=== PATIENT | female | born 2000 | race Hispanic/Latino ===

== ENCOUNTER 2022-07-29 14:48 | Emergency (ER) | payer OTHER ==
--- OUTSIDE RECORDS SUMMARY | 2022-07-29 14:55 | XMS REPORT | Continuity of Care Document ---
:2000 Author Organization [facility] t Address [address] [place] [address] [place] [address] Care Team Providers Name Role Phone PCP, PATIENT DOES NOT HAVE A Primary Care Physician Unavaila Florencia Clifton Attending Clinician Unavailable Luis E Gutiérrez MD Attending Clinician Unknown, Attending Attending Clinician Unavailable LUIS E GUTIÉRREZ Attending Clinician Unavailable Minal Haley Attending Clinician Provider, [facility] Attending Clinician Unavailable Doctor Unassigned, [place] Attending Clinician Unavailable Yoly Olsen Attending Clinician Negrita Escobar Attending Clinician Negrita KEENE Attending Clinician Unavailable Michelle Esparza MD Attending Clinician SHAMAR SULTANA Attending Clinician Unavailable Tiffany Miller Attending Clinician Pcp, Patient Does Not Have A Attending Clinician [phone] Florencia Gottlieb Admitting Clinician Unavailable Negrita KEENE Admitting Clinician Unavailable SHAMAR SULTANA Admitting Clinician Unavailable Payers Payer Name Policy Type Policy Number Effective Date Expiration Date Babak lópez [facility] [id number] 2015 00:00:00 Problems Condition Condition Condition Status Onset Resolution Last Treating Co mments Source Name Details Category Date Date Treatment Clinician Date Flexural Flexural Disease Active Unive rs eczema eczema 9-30 ity of 00:00: [place] 00 Medical Branch Anxiety Anxiety Disease Active Univers 9-30 ity of 00:00: [place] 00 Medical Branch Positive Positive Disease Active Unive rs LESVIA LESVIA 2-20 ity of (antinucle [place]antinucle [place] 00 Medical antibody) antibody) Bran ch H. pylori H. pylori Disease Active Overview: Univers infection infection 1-18 Added ity of 00:00: automatic [place] 00 ally from Medical request Branch for surgery [id number] Gastritis Gastritis Disease Active Overview: Univers without without 1-18 Added ity of bleeding, bleeding, 00:00: automatic [place] unspecifie unspecifie 00 ally from Medical d d request Branch chronicity chronicity for , , surgery unspecifie unspecifie [id number] d d gastritis gastritis type type Gastritis, Gastritis, Disease Active U nivers presence presence 1-08 ity of of of 00:00: [place] bleeding bleeding 00 Medica l unspecifie unspecifie Br anch d, d, unspecifie unspecifie d d chronicity chronicity , , unspecifie unspecifie d d gastritis gastritis type type 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 00:00: [place] 00 Medical Branch Epigastric Epigastric Disease Active U nivers abdominal abdominal 7-29 ity of pain pain 00:00: [place] 00 [facility] Branch Migraines Migraines Disease Active Uni vers it[facility] of [place] [facility] Allergies, Adverse Reactions, Alerts Allergy Allergy Status Severity Reaction(s) Onset Inactive Treating Comm ents Source Name Type Date Date Clinician No Known DA Active U [facility] [place] No Known DA Active U [facility] Allergie 8-31 [facility] 00:[facility] [place] NO KNOWN Drug Active Univers ALLERGIE Class ity of S [facility] Social History Social Habit Start Date Stop Date Quantity Comments Source ASSERTION 2020-07-13 University 00:00:00 [facility] Exposure to 2022-05-16 2022-05-26 Not sure [facility]-CoV-2 00:00:00 15:27:00 [facility] (event) [place] Tobacco use and 2022-05-26 2022-05-26 Smokeless tobacco Un iversity of exposure 00:00:00 00:00:00 non-user [facility] Alcohol intake 2022-05-26 2022-05-26 Ex-drinker [facility] 00:00:00 00:00:00 (finding) [facility] Alcohol Comment 2017-02-01 2017-02-01 Socially Universit y of 00:00:00 00:00:00 [facility] Sex Assigned At [birth year] Universit y of 00:00:00 00:00:00 [facility] Smoking Status Start Date Stop Date Source Never smoked tobacco [facility] Medications Ordered Filled Start Stop Current Ordering Indication Dosage Frequency Signature Comments Components Source Medication Medication Date Date Medication? Clinician (SIG) Name Name neomycin-po 2021-07 Yes [id number] 4[drp] Place 4 Univers lymyxin-hyd 1-20 Drops in ity of rocortisone 00:00: right ear [place] otic 00 4 (four) Medical solution times [place] daily. loratadine 2020- No [id number] 10mg Take 1 Univers (CLARITIN) 6-14 07-15 tablet by ity of 10 mg 00:00: 04:59 mouth [place] tablet 00 :00 daily for Medical 30 days. Branch loratadine 2020- No [id number] 10mg Take 1 Univers (CLARITIN) 6-14 07-15 tablet by ity of 10 mg 00:00: 04:59 mouth [place] tablet 00 :00 daily for Medical 30 days. Branch acetaminoph 2020- No 1000mg 1,000 mg, Univers en 09 05-09 Oral, ity of (TYLENOL) 04:15: 03:21 ONCE, [place] :[place] dose, Sat Medical 1,000 mg 11/11/20 at Branch 2315, Routine cyclobenzap 2020-0 Yes [id number] 10mg Take 1 Univers rine 10 mg 6-08 tablet by ity of tablet 00:00: mouth 3 (three) Medical times Branch daily. ibuprofen 2020-0 Yes [id number] 600mg Take 1 Univers 600 mg 6-08 tablet by ity of tablet 00:00: mouth [place] 00 every 6 Medical (six) Branch hours as needed for Pain (scale 4-6). cyclobenzap 2020-0 Yes [id number] 10mg Take 1 Univers rine 10 mg 6-08 tablet by ity of tablet 00:00: mouth 3 00 (three) Medical times Branch daily. ibuprofen 2020-0 Yes [id number] 600mg Take 1 Univers 600 mg 6-08 tablet by ity of tablet 00:00: mouth [place] 00 every 6 Medical (six) Branch hours as needed for Pain (scale 4-6). cyclobenzap 2020-0 Yes [id number] 10mg Take 1 Univers rine 10 mg 6-08 tablet by ity of tablet 00:00: mouth (three) Medical times Branch daily. ibuprofen 2020-0 Yes [id number] 600mg Take 1 Univers 600 mg 6-08 tablet by ity of tablet 00:00: mouth [place] 00 every 6 Medical (six) Branch hours as needed for Pain (scale 4-6). cyclobenzap 2020-0 Yes [id number] 10mg Take 1 Univers rine 10 mg 6-08 tablet by ity of tablet 00:00: mouth (three) Medical times Branch daily. ibuprofen 2020-0 Yes [id number] 600mg Take 1 Univers 600 mg 6-08 tablet by ity of tablet 00:00: mouth [place] 00 every 6 Medical (six) Branch hours as needed for Pain (scale 4-6). cyclobenzap 2020-0 Yes [id number] 10mg Take 1 Univers rine 10 mg 6-08 tablet by ity of tablet 00:00: mouth 3 (three) Medical times Branch daily. ibuprofen 2020-0 Yes [id number] 600mg Take 1 Univers 600 mg 6-08 tablet by ity of tablet 00:00: mouth [place] 00 every 6 Medical (six) Branch hours as needed for Pain (scale 4-6). cyclobenzap 2020-0 Yes [id number] 10mg Take 1 Univers rine 10 mg 6-08 tablet by ity of tablet 00:00: mouth 3 [place] 00 (three) Medical times Branch daily. ibuprofen 2020-0 Yes [id number] 600mg Take 1 Univers 600 mg 6-08 tablet by ity of tablet 00:00: mouth [place] 00 every 6 Medical (six) Branch hours as needed for Pain (scale 4-6). cyclobenzap 2020-0 Yes [id number] 10mg Take 1 Univers rine 10 mg 6-08 tablet by ity of tablet 00:00: mouth 3 [place] 00 (three) Medical times Branch daily. ibuprofen 2020-0 Yes [id number] 600mg Take 1 Univers 600 mg 6-08 tablet by ity of tablet 00:00: mouth [place] 00 every 6 Medical (six) Branch hours as needed for Pain (scale 4-6). ibuprofen 2020-0 2020- No [id number] 600mg Take 1 Univers 600 mg 6-08 06-08 tablet by ity of tablet 00:00: 00:00 mouth [place] 00 :00 every 6 Medical (six) Branch hours as needed for Pain (scale 4-6). ibuprofen 2020-0 2020- No [id number] 600mg Take 1 Univers 600 mg 6-08 06-08 tablet by ity of tablet 00:00: 00:00 mouth [place] 00 :00 every 6 Medical (six) Branch hours as needed for Pain (scale 4-6). traMADol 2018-07 Yes [id number] 50mg Take 1 Uni vers (ULTRAM) 50 0-22 tablet by ity of mg tablet 00:00: mouth [place] 00 every 6 Medical (six) Branch hours as needed for Pain (scale 7-10). traMADol 2018-07 Yes [id number] 50mg Take 1 Uni vers (ULTRAM) 50 0-22 tablet by ity of mg tablet 00:00: mouth [place] 00 every 6 Medical (six) Branch hours as needed for Pain (scale 7-10). traMADol 2018-07 Yes [id number] 50mg Take 1 Uni vers (ULTRAM) 50 0-22 tablet by ity of mg tablet 00:00: mouth [place] 00 every 6 Medical (six) Branch hours as needed for Pain (scale 7-10). traMADol 2018-07 Yes [id number] 50mg Take 1 Uni vers (ULTRAM) 50 0-22 tablet by ity of mg tablet 00:00: mouth [place] 00 every 6 Medical (six) Branch hours as needed for Pain (scale 7-10). traMADol 2018-07 Yes [id number] 50mg Take 1 Uni vers (ULTRAM) 50 0-22 tablet by ity of mg tablet 00:00: mouth [place] 00 every 6 Medical (six) Branch hours as needed for Pain (scale 7-10). traMADol 2018-07 Yes [id number] 50mg Take 1 Uni vers (ULTRAM) 50 0-22 tablet by ity of mg tablet 00:00: mouth [place] 00 every 6 Medical (six) Branch hours as needed for Pain (scale 7-10). traMADol 2018-07 Yes [id number] 50mg Take 1 Uni vers (ULTRAM) 50 0-22 tablet by ity of mg tablet 00:00: mouth [place] 00 every 6 Medical (six) Branch hours as needed for Pain (scale 7-10). traMADol 2018-07 Yes [id number] 50mg Take 1 Uni vers (ULTRAM) 50 0-22 tablet by ity of mg tablet 00:00: mouth [place] 00 every 6 Medical (six) Branch hours as needed for Pain (scale 7-10). ondansetron 2018-07 Yes [id number] 4mg Take 1 Univers (ZOFRAN 0-08 tablet by ity of ODT) 4 mg 00:00: mouth [place] disintegrat 00 every 8 Medic al ing tablet (eight) Branch hours as needed for Nausea and Vomiting (N/V). ibuprofen 2018-07 Yes [id number] 600mg Take 1 U nivers 600 mg 0-08 tablet by ity of tablet 00:00: mouth [place] 00 every 8 Medical (eight) Branch hours as needed for Pain (scale 4-6). ondansetron 2018-07 Yes [id number] 4mg Take 1 Univers (ZOFRAN 0-08 tablet by ity of ODT) 4 mg 00:00: mouth [place] disintegrat 00 every 8 Medic al ing tablet (eight) Branch hours as needed for Nausea and Vomiting (N/V). ibuprofen 2018-07 Yes [id number] 600mg Take 1 U nivers 600 mg 0-08 tablet by ity of tablet 00:00: mouth [place] 00 every 8 Medical (eight) Branch hours as needed for Pain (scale 4-6). ondansetron 2018-07 Yes [id number] 4mg Take 1 Univers (ZOFRAN 0-08 tablet by ity of ODT) 4 mg 00:00: mouth [place] disintegrat 00 every 8 Medic al ing tablet (eight) Branch hours as needed for Nausea and Vomiting (N/V). ibuprofen 2018-07 Yes [id number] 600mg Take 1 U nivers 600 mg 0-08 tablet by ity of tablet 00:00: mouth [place] 00 every 8 Medical (eight) Branch hours as needed for Pain (scale 4-6). ondansetron 2018-07 Yes [id number] 4mg Take 1 Univers (ZOFRAN 0-08 tablet by ity of ODT) 4 mg 00:00: mouth [place] disintegrat 00 every 8 Medic al ing tablet (eight) Branch hours as needed for Nausea and Vomiting (N/V). ibuprofen 2018-07 Yes [id number] 600mg Take 1 U nivers 600 mg 0-08 tablet by ity of tablet 00:00: mouth [place] 00 every 8 Medical (eight) Branch hours as needed for Pain (scale 4-6). ondansetron 2018-07 Yes [id number] 4mg Take 1 Univers (ZOFRAN 0-08 tablet by ity of ODT) 4 mg 00:00: mouth [place] disintegrat 00 every 8 Medic al ing tablet (eight) Branch hours as needed for Nausea and Vomiting (N/V). ibuprofen 2018-07 Yes [id number] 600mg Take 1 U nivers 600 mg 0-08 tablet by ity of tablet 00:00: mouth [place] 00 every 8 Medical (eight) Branch hours as needed for Pain (scale 4-6). ondansetron 2018-07 Yes [id number] 4mg Take 1 Univers (ZOFRAN 0-08 tablet by ity of ODT) 4 mg 00:00: mouth [place] disintegrat 00 every 8 Medic al ing tablet (eight) Branch hours as needed for Nausea and Vomiting (N/V). ibuprofen 2018-07 Yes [id number] 600mg Take 1 U nivers 600 mg 0-08 tablet by ity of tablet 00:00: mouth [place] 00 every 8 Medical (eight) Branch hours as needed for Pain (scale 4-6). ondansetron 2018-07 Yes [id number] 4mg Take 1 Univers (ZOFRAN 0-08 tablet by ity of ODT) 4 mg 00:00: mouth [place] disintegrat 00 every 8 Medic al ing tablet (eight) Branch hours as needed for Nausea and Vomiting (N/V). ibuprofen 2018-07 Yes [id number] 600mg Take 1 U nivers 600 mg 0-08 tablet by ity of tablet 00:00: mouth [place] 00 every 8 Medical (eight) Branch hours as needed for Pain (scale 4-6). ondansetron 2018-07 Yes [id number] 4mg Take 1 Univers (ZOFRAN 0-08 tablet by ity of ODT) 4 mg 00:00: mouth [place] disintegrat 00 every 8 Medic al ing tablet (eight) Branch hours as needed for Nausea and Vomiting (N/V). ibuprofen 2018-07 Yes [id number] 600mg Take 1 U nivers 600 mg 0-08 tablet by ity of tablet 00:00: mouth [place] 00 every 8 Medical (eight) Branch hours as needed for Pain (scale 4-6). SERTraline Yes [id number] 25mg Take 1 U nivers 25 mg 9-30 tablet by ity of tablet 00:00: mouth [place] 00 every Medical morning. Branch mometasone 0 Yes [id number] Apply to Univers 0.1 % cream 9-30 area(s) ity o f 00:00: daily. [place] [facility] SERTraline 0 Yes [id number] 25mg Take 1 U nivers 25 mg 9-30 tablet by ity of tablet 00:00: mouth [place] 00 every Medical morning. Branch mometasone 2019-0 Yes [id number] Apply to Univers 0.1 % cream 9-30 area(s) ity o f 00:00: daily. [place] [facility] Branch SERTraline 2019-0 Yes [id number] 25mg Take 1 U nivers 25 mg 9-30 tablet by ity of tablet 00:00: mouth [place] 00 every Medical morning. Branch mometasone 2019-0 Yes [id number] Apply to Univers 0.1 % cream 9-30 area(s) ity o f 00:00: daily. [place] [facility] SERTraline 2018-0 Yes [id number] 25mg Take 1 U nivers 25 mg 9-30 tablet by ity of tablet 00:00: mouth [place] 00 every Medical morning. Branch mometasone 2019-0 Yes [id number] Apply to Univers 0.1 % cream 9-30 area(s) ity o f 00:00: daily. [address] SERTraline Yes [id number] 25mg Take 1 U nivers 25 mg 9-30 tablet by ity of tablet 00:00: mouth every Medical morning. [place] mometasone Yes [id number] Apply to Univers 0.1 % cream 9-30 area(s) ity o f 00:00: daily. [address] SERTraline Yes [id number] 25mg Take 1 U nivers 25 mg 9-30 tablet by ity of tablet 00:00: mouth 00 every Medical morning. [place] mometasone Yes [id number] Apply to Univers 0.1 % cream 9-30 area(s) ity o f 00:00: daily. [address] SERTraline Yes [id number] 25mg Take 1 U nivers 25 mg 9-30 tablet by ity of tablet 00:00: mouth every Medical morning. [place] mometasone Yes [id number] Apply to Univers 0.1 % cream 9-30 area(s) ity o f 00:00: daily. [address] SERTraline Yes [id number] 25mg Take 1 U nivers 25 mg 9-30 tablet by ity of tablet 00:00: mouth every Medical morning. [place] mometasone Yes [id number] Apply to Univers 0.1 % cream 9-30 area(s) ity o f 00:00: daily. [address] cefTRIAXone 2019- No [id number] 1000mg Univers (ROCEPHIN) 03-15 ity of injection 15:15: 14:30 [place] 1,000 mg 00 :00 [facility] cefTRIAXone 2019- No [id number] 1000mg 1,000 mg, Univers (ROCEPHIN) 03-15 Intramuscu it y of injection 15:15: 14:30 lar, ONCE, [place] 1,000 mg 00 :00 1 dose, Medical 03/15/19 Branch at 1015, MOY
Re ason for Anti-Infec tive: Documented Infection< br>Documen navid Infection Site: Respirator y
Durat ion of Therapy: 7 days cefTRIAXone 2019- No [id number] 1000mg Univers (ROCEPHIN) 03-15 ity of injection 15:15: 14:30 [place] 1,000 mg 00 :00 Medical Branch cefTRIAXone 2019- No [id number] 1000mg 1,000 mg, Univers (ROCEPHIN) 03-15 Intramuscu it y of injection 15:15: 14:30 lar, ONCE, [place] 1,000 mg 00 :00 1 dose, Medical 03/15/19 Branch at 1015, MOY
Re ason for Anti-Infec tive: Documented Infection< br>Documen navid Infection Site: Respirator y
Durat ion of Therapy: 7 days amoxicillin 2019- No [id number] 500mg Take 1 Univers 500 mg 02-01 capsule by ity of capsule 00:00: 04:59 mouth 2 [place] 00 :00 (two) Medical times Branch daily for 10 days. amoxicillin 2019- No [id number] 500mg Take 1 Univers 500 mg 02-01 capsule by ity of capsule 00:00: 04:59 mouth 2 [place] 00 :00 (two) Medical times Branch daily for 10 days. benzonatate Yes [id number] 100mg Take 1 Univers (TESSALON 5-07 capsule by ity of TRACY) 100 00:00: mouth 3 Huseyin as mg capsule 00 (three) Medica l times Branch daily. benzonatate 2019- No [id number] 100mg Take 1 Univers (TESSALON 5-07 - capsule by itkathy TRACY) 100 00:00: 00:00 mouth 3 [place] mg capsule 00 :00 (three) Medica l times Branch daily. No known No Univers medications ity of [facility] Immunizations Ordered Immunization Filled Immunization Date Status Commen ts Source Name Name Meningococcal 2016-12-03 Completed University of Polysaccharide 00:00:00 [place] [facility] sheryl (groups A, C, Y and Branc h W-135) conjugate vaccine (MCV4P) Meningococcal 2016-12-03 Completed University of Polysaccharide 00:00:00 [place] Medi sheryl (groups A, C, Y and Branc h W-135) conjugate vaccine (MCV4P) Meningococcal 2016-12-03 Completed University of Polysaccharide 00:00:00 [place] Medi sheryl (groups A, C, Y and Branc h W-135) conjugate vaccine (MCV4P) Meningococcal 2016-12-03 Completed University of Polysaccharide 00:00:00 [place] Medi sheryl (groups A, C, Y and Branc h W-135) conjugate vaccine (MCV4P) Meningococcal 2016-12-03 Completed University of Polysaccharide 00:00:00 [place] Medi sheryl (groups A, C, Y and Branc h W-135) conjugate vaccine (MCV4P) Meningococcal 2016-12-03 Completed University of Polysaccharide 00:00:00 [place] Medi sheryl (groups A, C, Y and Branc h W-135) conjugate vaccine (MCV4P) Meningococcal 2016-12-03 Completed University of Polysaccharide 00:00:00 [place] Medi sheryl (groups A, C, Y and Branc h W-135) conjugate vaccine (MCV4P) Meningococcal 2016-12-03 Completed University of Polysaccharide 00:00:00 [place] Medi sheryl (groups A, C, Y and Branc h W-135) conjugate vaccine (MCV4P) Meningococcal 2016-12-03 Completed University of Polysaccharide 00:00:00 [place] Medi sheryl (groups A, C, Y and Branc h W-135) conjugate vaccine (MCV4P) Meningococcal 2016-12-03 Completed University of Polysaccharide 00:00:00 [place] Medi sheryl (groups A, C, Y and Branc h W-135) conjugate vaccine (MCV4P) Meningococcal 2016-12-03 Completed University of Polysaccharide 00:00:00 [place] Medi sheryl (groups A, C, Y and Branc h W-135) conjugate vaccine (MCV4P) Meningococcal 2016-12-03 Completed University of Polysaccharide 00:00:00 [place] Medi sheryl (groups A, C, Y and Branc h W-135) conjugate vaccine (MCV4P) Meningococcal 2016-12-03 Completed University of Polysaccharide 00:00:00 [place] Medi sheryl (groups A, C, Y and Branc h W-135) conjugate vaccine (MCV4P) Meningococcal 2016-12-03 Completed University of Polysaccharide 00:00:00 [place] Medi sheryl (groups A, C, Y and Branc h W-135) conjugate vaccine (MCV4P) HPV 2012-06-02 Completed University of 00:00:00 [facility] Influenza Virus 2012-06-02 Completed Universit y of Vaccine - Whole 00:00:00 [facility] HPV 2012-06-02 Completed University of 00:00:00 [facility] Influenza Virus 2012-06-02 Completed Universit y of Vaccine - Whole 00:00:00 [facility] HPV 2012-06-02 Completed University of 00:00:00 [facility] Influenza Virus 2012-06-02 Completed Universit y of Vaccine - Whole 00:00:00 [facility] HPV 2012-06-02 Completed University of 00:00:00 [facility] Influenza Virus 2012-06-02 Completed Universit y of Vaccine - Whole 00:00:00 [facility] HPV 2012-06-02 Completed University of 00:00:00 [facility] Influenza Virus 2012-06-02 Completed Universit y of Vaccine - Whole 00:00:00 [facility] HPV 2012-06-02 Completed University of 00:00:00 [facility] Influenza Virus 2012-06-02 Completed Universit y of Vaccine - Whole 00:00:00 [facility] HPV 2012-06-02 Completed University of 00:00:00 [facility] Influenza Virus 2012-06-02 Completed Universit y of Vaccine - Whole 00:00:00 [facility] HPV 2012-06-02 Completed University of 00:00:00 [facility] Influenza Virus 2012-06-02 Completed Universit y of Vaccine - Whole 00:00:00 [facility] HPV 2012-06-02 Completed University of 00:00:00 [facility] Influenza Virus 2012-06-02 Completed Universit y of Vaccine - Whole 00:00:00 [facility] HPV 2012-06-02 Completed University of 00:00:00 [facility] Influenza Virus 2012-06-02 Completed Universit y of Vaccine - Whole 00:00:00 [facility] HPV 2012-06-02 Completed University of 00:00:00 [facility] Influenza Virus 2012-06-02 Completed Universit y of Vaccine - Whole 00:00:00 [facility] HPV 2012-06-02 Completed University of 00:00:00 [facility] Influenza Virus 2012-06-02 Completed Universit y of Vaccine - Whole 00:00:00 [facility] HPV 2012-06-02 Completed University of 00:00:00 [facility] Influenza Virus 2012-06-02 Completed Universit y of Vaccine - Whole 00:00:00 [facility] Branch HPV 2012-01-27 Completed University of 00:00:00 [facility] Branch HPV 2012-01-27 Completed University of 00:00:00 [facility] Branch HPV 2012-01-27 Completed University of 00:00:00 [facility] Branch HPV 2012-01-27 Completed University of 00:00:00 [facility] Branch HPV 2012-01-27 Completed University of 00:00:00 [facility] Branch HPV 2012-01-27 Completed University of 00:00:00 [facility] Branch HPV 2012-01-27 Completed University of 00:00:00 [facility] Branch HPV 2012-01-27 Completed University of 00:00:00 [facility] Branch HPV 2012-01-27 Completed University of 00:00:00 [facility] Branch HPV 2012-01-27 Completed University of 00:00:00 [facility] Branch HPV 2012-01-27 Completed University of 00:00:00 [facility] HPV 2012-01-27 Completed University of 00:00:00 [facility] HPV 2012-01-27 Completed University of 00:00:00 [facility] Vital Signs Vital Name Observation Time Observation Value Comments Source Systolic blood 2022-05-26 21:27:00 131 mm[Hg] Univer sity of pressure [facility] Diastolic blood 2022-05-26 21:27:00 85 mm[Hg] Unive rsity of pressure [facility] Heart rate 2022-05-26 21:27:00 78 /min [facility] Body temperature 2022-05-26 21:27:00 37.11 Yuridia [facility] Res[facility] rate 2022-05-26 21:27:00 18 /min [facility] Body height 2022-05-26 21:27:00 165.1 cm [facility] Body weight 2022-05-26 21:27:00 65.182 kg [facility] BMI 2022-05-26 21:27:00 23.91 kg/m2 [facility] Oxygen saturation in 2022-05-26 21:27:00 100 /min University of Arterial blood by [facility] Pulse oximetry Branch Systolic blood 2020-12-18 16:34:00 115 mm[Hg] Univer sity of pressure [place] [facility] Diastolic blood 2020-12-18 16:34:00 68 mm[Hg] Unive rsity of pressure [place] [facility] Heart rate 2020-12-18 16:34:00 93 /min Universi ty of [place] [facility] Body temperature 2020-12-18 16:34:00 36.94 Yuridia Univ ersity of [place] [facility] Respiratory rate 2020-12-18 16:34:00 12 /min Univ ersity of [place] [facility] Body height 2020-12-18 16:34:00 165.1 cm Universi ty [facility] [place] [facility] Body weight 2020-12-18 16:34:00 68.04 kg Universi ty [facility] [place] [facility] BMI 2020-12-18 16:34:00 24.96 kg/m2 [facility] [place] [facility] Oxygen saturation in 2020-12-18 16:34:00 97 /min University of Arterial blood by [facility] Pulse oximetry Branch Systolic blood 2020-11-12 02:17:00 118 mm[Hg] Univer sity of pressure [facility] Diastolic blood 2020-11-12 02:17:00 76 mm[Hg] Unive rsity of pressure [facility] Heart rate 2020-11-12 02:17:00 87 /min [facility] [place] [facility] Body temperature 2020-11-12 02:17:00 37.11 Yuridia [facility] [place] [facility] Respiratory rate 2020-11-12 02:17:00 20 /min [facility] [place] [facility] Body height 2020-11-12 02:17:00 165.1 cm [facility] [place] [facility] Body weight 2020-11-12 02:17:00 60.782 kg [facility] [place] [facility] BMI 2020-11-12 02:17:00 22.30 kg/m2 [facility] [place] [facility] Oxygen saturation in 2020-11-12 02:17:00 94 /min [facility] Ar[facility]ial blood by [facility] sheryl Pulse oximetry Branch Systolic blood 2019-12-13 19:51:00 122 mm[Hg] Univer [facility]ity of pressure [facility] Diastolic blood 2019-12-13 19:51:00 82 mm[Hg] Unive rsity [facility] [place] [facility] Heart rate 2019-12-13 19:51:00 88 /min [facility] [place] [facility] Body temperature 2019-12-13 19:51:00 37.06 Yuridia [facility] [place] [facility] Respiratory rate 2019-12-13 19:51:00 20 /min [facility] [place] [facility] Body weight 2019-12-13 19:51:00 57.607 kg [facility]i ty of [facility] Oxygen saturation in 2019-12-13 19:51:00 100 /min [facility] Arterial blood by [facility] Pulse oximetry Branch Systolic blood 2019-03-15 13:56:00 102 mm[Hg] Univer sity of pressure [facility] Diastolic blood 2019-03-15 13:56:00 69 mm[Hg] Unive rsity of pressure [facility] Branch Heart rate 2019-03-15 13:56:00 81 /min Universi ty of [facility] Body temperature 2019-03-15 13:56:00 37 Yuridia [facility] [place] [facility] [place] Body weight 2019-03-15 13:56:00 55.792 kg Universi ty of [facility] Oxygen saturation in 2019-03-15 13:56:00 98 /min [facility] of Arterial blood by [facility] Pulse oximetry Branch Systolic blood 2019-02-01 14:06:00 103 mm[Hg] Univer sity of pressure [facility] Diastolic blood 2019-02-01 14:06:00 68 mm[Hg] Unive rsity of pressure [facility] Heart rate 2019-02-01 14:06:00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
[2022-07-29] MEDS ORDERED: BUPIVACAINE 0.5% PF 10 ML VIAL ONE (16:42)
[2022-07-29] MEDS ORDERED: LIDOCAINE 1% MPF 5 ML VIAL ONE (16:43)
--- NOTE | 2022-07-29 17:15 | ER ---
Nurse's Notes [facility] Name: Kiki Ellsworth Age: 21 yrs Sex: Female : 2000 Arrival Date: 07/29/2022 Time: 14:52 Bed 17 Private MD: Diagnosis: Epidermal cyst-upper mid back Presentation: 07/29 15:30 Chief complaint: Patient states: bump to middle upper back that was noticed 4 weeks ago ss and seems to be getting bigger. Coronavirus screen: Client denies travel out of the [place] in the last 14 days. Ebola Screen: Patient denies exposure to infectious person. Patient denies travel to an Ebola-affected area in the 21 days before illness onset. Initial Sepsis Screen: Does the patient meet any 2 criteria? No. Patient's initial sepsis screen is negative. Does the patient have a suspected source of infection? No. Patient's initial sepsis screen is negative. Risk Assessment: Do you want to hurt yourself or someone else? Patient reports no desire to harm self or others. Onset of symptoms was June 2022. 15:30 Method Of Arrival: Ambulatory ss 15:30 Acuity: TEODORO 4 ss Triage Assessment: 17:33 General: Appears in no apparent distress. Behavior is calm, cooperative. Pain: Denies [facility] pain. CLIENT SUCCESS DIRECTOR: 17:33 LMP 07/18/2022 [facility] Historical: - Allergies: 15:33 No Known Allergies; ss - Home Meds: 15:33 None [Active]; ss - PMHx: 15:33 None; ss - PSHx: 15:33 Tonsillectomy; section; Cholecystectomy; ss - Immunization history:: Client reports receiving the 2nd dose of the Covid vaccine. - Social history:: Smoking status: Patient denies any tobacco usage or history of. Screenin:12 [facility] ED Fall Risk Assessment (Adult) History of falling in the last 3 months, [facility] including since admission No falls in past 3 months (0 pts) Confusion or Disorientation No (0 pts) Intoxicated or Sedated No (0 pts) Impaired Gait No (0 pts) Mobility Assist Device Used No (0 pt) Altered Elimination No (0 pt) Score/Fall Risk Level 0 - 2 = Low Risk. Abuse screen: Denies threats or abuse. Denies injuries from another. Nutritional screening: No deficits noted. Tuberculosis screening: No symptoms or risk factors identified. Vital Signs: 15:30 BP 119 / 57; Pulse 71; Resp 15; Temp 97.9(TE); Pulse Ox 100% on R/A; Weight 65.32 kg; Height 5 ft. 5 in. (165.10 cm); Pain 6/10; 17:12 BP 121 / 62; Pulse 80; Resp 16; Pulse Ox 98% ; jh5 15:30 Body Mass Index 23.96 (65.32 kg, 165.10 cm) ED Course: 14:52 Patient arrived in ED. rg4 14:58 Benny Piper PA is PHCP. cp 14:58 Cayetano Palm DO is Attending Physician. cp 15:29 Benny Piper PA is PHCP. cp 15:33 Triage completed. ss 15:33 Arm band placed on right wrist. 17:14 Brannon Bernal MD is Referral Physician. cp 17:33 Patient has correct armband on for positive identification. Bed in low position. Call 5 light in reach. Side rails up X 1. 17:33 No provider procedures requiring assistance completed. Patient did not have IV access jh5 during this emergency room visit. Administered Medications: 16:59 Drug: Lidocaine (1 %) 5 ml {Note: Given via PA. Suha} Volume: 5 ml; Route: jh5 Infiltration; 16:59 Drug: Marcaine (bupivacaine) (0.5 %) 5 ml {Note: Given Via PA. Suha} Volume: 10 jh5 ml; Route: Infiltration; Medication: 17:33 VIS not applicable for this client. 5 Outcome: 17:15 Discharge ordered by MD. cp 17:34 Discharged to home ambulatory. 5 17:34 Condition: good 17:34 Discharge instructions given to patient, Instructed on discharge instructions, follow up and referral plans. medication usage, safety practices, Demonstrated understanding of instructions, follow-up care, medications, Prescriptions given X 1. 17:34 Patient left the ED. 5 Signatures: Arianne Mark RN RN Benny Piper PA PA cp Garcia, Rubi rg4 Zakia Meade RN RN 5
--- NOTE | 2022-07-29 17:15 | EDPHYS ---
Physician Documentation [facility] Name: Kiki Ellsworth Age: 21 yrs Sex: Female : 2000 Arrival Date: 07/29/2022 Time: 14:52 Bed 17 Private MD: ED Physician Cayetano Palm HPI: 07/29 15:42 This 21 yrs old Female presents to ER via Ambulatory with complaints of Bump cp On Back. 15:43 cyst. Description: fluctuant. Onset: The symptoms/episode began/occurred several months cp ago. Associated signs and symptoms: Pertinent positives: swelling, pain, Pertinent negatives: discharge, drainage, fever. 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 - Social history:: Smoking status: Patient denies any tobacco usage or history of. ROS: 15:44 Constitutional: Negative for body aches, chills, fever. cp 15:44 Cardiovascular: Negative for chest pain, palpitations. 15:44 Respiratory: Negative for cough, shortness of breath, wheezing. 15:44 Abdomen/GI: Negative for abdominal pain, nausea, vomiting, and diarrhea. 15:44 Skin: Positive for of the upper mid back, cyst. 15:44 All other systems are negative. Exam: 15:44 Head/Face: Normocephalic, atraumatic. cp 15:44 Constitutional: The patient appears in no acute distress, alert, awake, non-toxic, well developed, well nourished. 15:44 Cardiovascular: Rate: normal. 15:44 Respiratory: the patient does not display signs of respiratory distress, Respirations: normal, no use of accessory muscles, no retractions, labored breathing, is not present. 15:44 Skin: cyst noted upper mid back that appears w/o erythema, drainage, mildly tender to palpation. Vital Signs: 15:30 BP 119 / 57; Pulse 71; Resp 15; Temp 97.9(TE); Pulse Ox 100% on R/A; Weight 65.32 kg; ss Height 5 ft. 5 in. (165.10 cm); Pain 6/10; 17:12 BP 121 / 62; Pulse 80; Resp 16; Pulse Ox 98% ; jh5 15:30 Body Mass Index 23.96 (65.32 kg, 165.10 cm) ss Procedures: 17:12 I \T\ D: Incision and drainage was performed for an abscess of the mid upper back Prepped cp with Betadine, Anesthetized with 5 ccs mixture 1% lidocaine w/o epi and 0.5% marcaine. Incised with #11 blade. Drained thick white colored Packed with iodoform gauze, Dressing: sterile 4x4 gauze, the patient tolerated the procedure well. MDM: 16:05 Patient medically screened. cp 16:45 Differential diagnosis: abscess, cellulitis, cyst. cp 17:15 Data reviewed: vital signs, nurses notes. cp 17:15 Consideration of Admission/Observation Escalation of care including cp admission/observation considered. Test considered but Not performed: Other Details US. Counseling: I had a detailed discussion with the patient and/or guardian regarding: the historical points, exam findings, and any diagnostic results supporting the discharge/admit diagnosis, to return to the emergency department if symptoms worsen or persist or if there are any questions or concerns that arise at home. Response to treatment: the patient's symptoms have markedly improved after treatment, and as a result, I will discharge patient. 07/29 16:06 Order name: I\T\D Setup; Complete Time: 16:38 cp Administered Medications: 16:59 Drug: Lidocaine (1 %) 5 ml {Note: Given via Larry Piper PA.} Volume: 5 ml; Route: jh5 Infiltration; 16:59 Drug: Marcaine (bupivacaine) (0.5 %) 5 ml {Note: Given Via Larry Piper, PA.} Volume: 10 jh5 ml; Route: Infiltration; Disposition: 19:21 Co-signature as Attending Physician, Cayetano COON was immediately available on-site ms3 in the Emergency Department for consultation in the care of the patient. Disposition Summary: 07/29/22 17:15 Discharge Ordered Location: Home cp Problem: new cp Symptoms: have improved cp Condition: Stable cp Diagnosis - Epidermal cyst - upper mid back cp Followup: cp - With: Brannon Bernal MD - When: 1 - 2 days - Reason: Wound Recheck Discharge Instructions: - Discharge Summary Sheet cp - Epidermal Cyst Removal cp - Epidermal Cyst cp - Epidermal Cyst Removal, Care After cp Forms: - Medication Reconciliation Form cp - Thank You Letter cp - Antibiotic Education cp - Prescription Opioid Use cp - Work release form jh5 Prescriptions: - Ibuprofen 800 mg Oral Tablet - take 1 tablet by ORAL route every 8 hours As needed take with food; 30 tablet; cp Refills: 0, Product Selection Permitted Signatures: Arianne Mark, RN RN ss Benny Piper PA PA Cayetano Valdes DO DO ms3 Zakia Meade, RN RN jh5
[2022-07-29 18:53] VITALS: TEMP 97.9
[2022-07-29 18:54] VITALS: BP 121/62; O2SAT 98
== END 2022-07-29 17:34 | disposition home or self-care (01) ==
LOC: ER 14:48
PROC: 0H96XZZ Drainage of Back Skin, External Approach (ICD-10-PCS; principal; 2022-07-29)
DX: L72.9 Follicular cyst of the skin and subcutaneous tissue, unspecified (principal)
CPT/HCPCS: 10060; J2001; 99283

== ENCOUNTER 2022-07-31 09:43 | Emergency (ER) | payer OTHER ==
--- OUTSIDE RECORDS SUMMARY | 2022-07-31 09:47 | XMS REPORT | Continuity of Care Document ---
:2000 Author Organization [facility] t Address [address] [place] [address] [place] [address] Care Team Providers Name Role Phone PCP, PATIENT DOES NOT HAVE A Primary Care Physician Unavaila ble Florencia Gottlieb Attending Clinician Unavailable Luis E Gutiérrez MD Attending Clinician Unknown, Attending Attending Clinician Unavailable LUIS E GUTIÉRREZ Attending Clinician Unavailable Swathi GARCIAPMinal Attending Clinician Provider, [facility] Attending Clinician Unavailable Doctor Unassigned, Ault Attending Clinician Unavailable Shen KLEIN, Yoly F Attending Clinician Negrita Escobar Attending Clinician Negrita KEENE Attending Clinician Unavailable Michelle Esparza MD Attending Clinician SHAMAR SULTANA Attending Clinician Unavailable Tiffany Miller Attending Clinician Pcp, Patient Does Not Have A Attending Clinician [phone] Florencia Gottlieb Admitting Clinician Unavailable Negrita KEENE Admitting Clinician Unavailable SHAMAR SULTANA Admitting Clinician Unavailable Payers Payer Name Policy Type Policy Number Effective Date Expiration Date Babak lópez [facility] [id number] 2015 00:00:00 Problems Condition Condition Condition Status [...] ally from Medical request Branch for surgery [id number] Gastritis Gastritis Disease Active Overview: Univers without without 1-18 Added ity of bleeding, bleeding, 00:00: automatic [place] unspecifie unspecifie 00 ally from Medical d d request Branch chronicity chronicity for , , surgery unspecifie unspecifie [id number] d d gastritis gastritis type type Gastritis, Gastritis, Disease Active U nivers presence presence 1-08 ity of of of 00:00: [place] bleeding bleeding 00 Medica l unspecifie unspecifie Br anch d, d, unspecifie unspecifie d d chronicity chronicity , , unspecifie unspecifie d d gastritis gastritis type type 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 00:00: [place] 00 Medical Branch Epigastric Epigastric Disease Active U nivers abdominal abdominal 7-29 ity of pain pain 00:00: [place] 00 Medical Branch Migraines Migraines Disease Active Uni vers [facility] [place] [facility] Allergies, Adverse Reactions, Alerts Allergy Allergy Status Severity Reaction(s) Onset Inactive Treating Comm ents Source Name Type Date Date Clinician No Known DA Active [facility] No Known DA Active U [facility] Allergie 03-06 [facility] NO KNOWN Drug Active Univers ALLERGIE Class ity of S [facility] Social History Social Habit Start Date Stop Date Quantity Comments Source ASSERTION 2020-07-13 [facility] 00:00:00 [facility] Exposure to 2022-05-16 2022-05-26 Not sure [facility] SARS-CoV-2 00:00:00 15:27:00 [facility] (event) [place] Tobacco use and 2022-05-26 2022-05-26 Smokeless tobacco Un iversity of exposure 00:00:00 00:00:00 non-user [facility] Alcohol intake 2022-05-26 2022-05-26 Ex-drinker [facility] 00:00:00 00:00:00 (finding) [facility] Alcohol Comment 2017-02-01 2017-02-01 Socially Universit y of 00:00:00 00:00:00 [facility] Sex Assigned At [birth year] Universit y of 00:00:00 00:00:00 [facility] Smoking Status Start Date Stop Date Source Never smoked tobacco [facility] Medications Ordered Filled Start Stop Current Ordering Indication Dosage Frequency Signature Comments Components Source Medication Medication Date Date Medication? Clinician (SIG) Name Name neomycin-po 2021-07 Yes [id number] 4[drp] Place 4 Univers lymyxin-hyd 1-20 Drops in ity of rocortisone 00:00: right ear [place] otic 00 4 (four) Medical solution times [place] daily. loratadine 2020- No [id number] 10mg Take 1 Univers (CLARITIN) -17 01-15 tablet by ity of 10 mg 00:00: 04:59 mouth [place] tablet 00 :00 daily for Medical 30 days. Branch loratadine 2020- No [id number] 10mg Take 1 Univers (CLARITIN) 6-14 07-15 tablet by ity of 10 mg 00:00: 04:59 mouth [place] tablet 00 :00 daily for Medical 30 days. Branch acetaminoph 2020- No 1000mg 1,000 mg, Univers en 11-12 05-09 Oral, ity of (TYLENOL) 04:15: 03:21 ONCE, [place] :[place] dose, Sat Medical 1,000 mg 5/8/21 at Branch 2315, Routine cyclobenzap 2020-0 Yes [id number] 10mg Take 1 Univers rine 10 mg 6-08 tablet by ity of tablet 00:00: mouth 3 [place] 00 (three) Medical times Branch daily. ibuprofen 2020-0 Yes [id number] 600mg Take 1 Univers 600 mg 6-08 tablet by ity of tablet 00:00: mouth [place] 00 every 6 Medical (six) Branch hours as needed for Pain (scale 4-6). cyclobenzap 2020-0 Yes [id number] 10mg Take 1 Univers rine 10 mg 6-08 tablet by ity of tablet 00:00: mouth 3 [place] 00 (three) Medical times Branch daily. ibuprofen 2020-0 Yes [id number] 600mg Take 1 Univers 600 mg 6-08 tablet by ity of tablet 00:00: mouth [place] 00 every 6 Medical (six) Branch hours as needed for Pain (scale 4-6). cyclobenzap 2020-0 Yes [id number] 10mg Take 1 Univers rine 10 mg 6-08 tablet by ity of tablet 00:00: mouth 3 (three) Medical times Branch daily. ibuprofen 2020-0 Yes [id number] 600mg Take 1 Univers 600 mg 6-08 tablet by ity of tablet 00:00: mouth [place] 00 every 6 Medical (six) Branch hours as needed for Pain (scale 4-6). cyclobenzap 2020-0 Yes [id number] 10mg Take 1 Univers rine 10 mg 6-08 tablet by ity of tablet 00:00: mouth 3 (three) Medical times Branch daily. ibuprofen 2020-0 Yes [id number] 600mg Take 1 Univers 600 mg 6-08 tablet by ity of tablet 00:00: mouth [place] 00 every 6 Medical (six) Branch hours as needed for Pain (scale 4-6). cyclobenzap 2020-0 Yes [id number] 10mg Take 1 Univers rine 10 mg 6-08 tablet by ity of tablet 00:00: mouth 3 (three) Medical times Branch daily. ibuprofen 2020-0 Yes [id number] 600mg Take 1 Univers 600 mg 6-08 tablet by ity of tablet 00:00: mouth [place] 00 every 6 Medical (six) Branch hours as needed for Pain (scale 4-6). cyclobenzap 2020-0 Yes [id number] 10mg Take 1 Univers rine 10 mg 6-08 tablet by ity of tablet 00:00: mouth 3 [place] 00 (three) Medical times Branch daily. ibuprofen 2020-0 Yes [id number] 600mg Take 1 Univers 600 mg 6-08 tablet by ity of tablet 00:00: mouth [place] 00 every 6 Medical (six) Branch hours as needed for Pain (scale 4-6). cyclobenzap 2020-0 Yes [id number] 10mg Take 1 Univers rine 10 mg 6-08 tablet by ity of tablet 00:00: mouth 3 [place] 00 (three) Medical times Branch daily. ibuprofen 2020-0 Yes [id number] 600mg Take 1 Univers 600 mg 6-08 tablet by ity of tablet 00:00: mouth [place] 00 every 6 Medical (six) Branch hours as needed for Pain (scale 4-6). ibuprofen 2020-0 2020- No [id number] 600mg Take 1 Univers 600 mg 6-08 06-08 tablet by ity of tablet 00:00: 00:00 mouth [place] 00 :00 every 6 Medical (six) Branch hours as needed for Pain (scale 4-6). ibuprofen 2019-0 2020- No [id number] 600mg Take 1 Univers 600 mg 6-08 06-08 tablet by ity of tablet 00:00: 00:00 mouth [place] 00 :00 every 6 Medical (six) Branch hours as needed for Pain (scale 4-6). traMADol 2018-07 Yes [id number] 50mg Take 1 Uni vers (ULTRAM) 50 0-22 tablet by ity of mg tablet 00:00: mouth [place] 00 every 6 Medical (six) Branch hours as needed for Pain (scale 7-10). traMADol 2018-07 Yes [id number] 50mg Take 1 Uni vers (ULTRAM) 50 0-22 tablet by ity of mg tablet 00:00: mouth [place] 00 every 6 Medical (six) Branch hours as needed for Pain (scale 7-10). traMADol 2018-07 Yes [id number] 50mg Take 1 Uni vers (ULTRAM) 50 0-22 tablet by ity of mg tablet 00:00: mouth [place] 00 every 6 Medical (six) Branch hours as needed for Pain (scale 7-10). traMADol 2018-07 Yes [id number] 50mg Take 1 Uni vers (ULTRAM) 50 0-22 tablet by ity of mg tablet 00:00: mouth [place] 00 every 6 Medical (six) Branch hours as needed for Pain (scale 7-10). traMADol 2018-07 Yes [id number] 50mg Take 1 Uni vers (ULTRAM) 50 0-22 tablet by ity of mg tablet 00:00: mouth [place] 00 every 6 Medical (six) Branch hours as needed for Pain (scale 7-10). traMADol 2018-07 Yes [id number] 50mg Take 1 Uni vers (ULTRAM) 50 0-22 tablet by ity of mg tablet 00:00: mouth [place] 00 every 6 Medical (six) Branch hours as needed for Pain (scale 7-10). traMADol 2018-07 Yes [id number] 50mg Take 1 Uni vers (ULTRAM) 50 0-22 tablet by ity of mg tablet 00:00: mouth [place] 00 every 6 Medical (six) Branch hours as needed for Pain (scale 7-10). traMADol 2018-07 Yes [id number] 50mg Take 1 Uni vers (ULTRAM) 50 0-22 tablet by ity of mg tablet 00:00: mouth [place] 00 every 6 Medical (six) Branch hours as needed for Pain (scale 7-10). ondansetron 2018-07 Yes [id number] 4mg Take 1 Univers (ZOFRAN 0-08 tablet by ity of ODT) 4 mg 00:00: mouth [place] disintegrat 00 every 8 Medic al ing tablet (eight) Branch hours as needed for Nausea and Vomiting (N/V). ibuprofen 2018-07 Yes [id number] 600mg Take 1 U nivers 600 mg 0-08 tablet by ity of tablet 00:00: mouth [place] 00 every 8 Medical (eight) Branch hours as needed for Pain (scale 4-6). ondansetron 2018-07 Yes [id number] 4mg Take 1 Univers (ZOFRAN 0-08 tablet by ity of ODT) 4 mg 00:00: mouth [place] disintegrat 00 every 8 Medic al ing tablet (eight) Branch hours as needed for Nausea and Vomiting (N/V). ibuprofen 2018-07 Yes [id number] 600mg Take 1 U nivers 600 mg 0-08 tablet by ity of tablet 00:00: mouth [place] 00 every 8 Medical (eight) Branch hours as needed for Pain (scale 4-6). ondansetron 2018-07 Yes [id number] 4mg Take 1 Univers (ZOFRAN 0-08 tablet by ity of ODT) 4 mg 00:00: mouth [place] disintegrat 00 every 8 Medic al ing tablet (eight) Branch hours as needed for Nausea and Vomiting (N/V). ibuprofen 2018-07 Yes [id number] 600mg Take 1 U nivers 600 mg 0-08 tablet by ity of tablet 00:00: mouth [place] 00 every 8 Medical (eight) Branch hours as needed for Pain (scale 4-6). ondansetron 2018-07 Yes [id number] 4mg Take 1 Univers (ZOFRAN 0-08 tablet by ity of ODT) 4 mg 00:00: mouth [place] disintegrat 00 every 8 Medic al ing tablet (eight) Branch hours as needed for Nausea and Vomiting (N/V). ibuprofen 2018-07 Yes [id number] 600mg Take 1 U nivers 600 mg 0-08 tablet by ity of tablet 00:00: mouth [place] 00 every 8 Medical (eight) Branch hours as needed for Pain (scale 4-6). ondansetron 2018-07 Yes [id number] 4mg Take 1 Univers (ZOFRAN 0-08 tablet by ity of ODT) 4 mg 00:00: mouth [place] disintegrat 00 every 8 Medic al ing tablet (eight) Branch hours as needed for Nausea and Vomiting (N/V). ibuprofen 2018-07 Yes [id number] 600mg Take 1 U nivers 600 mg 0-08 tablet by ity of tablet 00:00: mouth [place] 00 every 8 Medical (eight) Branch hours as needed for Pain (scale 4-6). ondansetron 2018-07 Yes [id number] 4mg Take 1 Univers (ZOFRAN 0-08 tablet by ity of ODT) 4 mg 00:00: mouth [place] disintegrat 00 every 8 Medic al ing tablet (eight) Branch hours as needed for Nausea and Vomiting (N/V). ibuprofen 2018-07 Yes [id number] 600mg Take 1 U nivers 600 mg 0-08 tablet by ity of tablet 00:00: mouth [place] 00 every 8 Medical (eight) Branch hours as needed for Pain (scale 4-6). ondansetron 2018-07 Yes [id number] 4mg Take 1 Univers (ZOFRAN 0-08 tablet by ity of ODT) 4 mg 00:00: mouth [place] disintegrat 00 every 8 Medic al ing tablet (eight) Branch hours as needed for Nausea and Vomiting (N/V). ibuprofen 2018-07 Yes [id number] 600mg Take 1 U nivers 600 mg 0-08 tablet by ity of tablet 00:00: mouth [place] 00 every 8 Medical (eight) Branch hours as needed for Pain (scale 4-6). ondansetron 2018-07 Yes [id number] 4mg Take 1 Univers (ZOFRAN 0-08 tablet by ity of ODT) 4 mg 00:00: mouth [place] disintegrat 00 every 8 Medic al ing tablet (eight) Branch hours as needed for Nausea and Vomiting (N/V). ibuprofen 2018-07 Yes [id number] 600mg Take 1 U nivers 600 mg 0-08 tablet by ity of tablet 00:00: mouth [place] 00 every 8 Medical (eight) Branch hours as needed for Pain (scale 4-6). SERTraline Yes [id number] 25mg Take 1 U nivers 25 mg 9-30 tablet by ity of tablet 00:00: mouth [place] 00 every Medical morning. Branch mometasone 0 Yes [id number] Apply to Univers 0.1 % cream 9-30 area(s) ity o f 00:00: daily. Medical Branch SERTraline 0 Yes [id number] 25mg Take 1 U nivers 25 mg 9-30 tablet by ity of tablet 00:00: mouth [place] 00 every Medical morning. Branch mometasone 2018-0 Yes [id number] Apply to Univers 0.1 % cream 9-30 area(s) ity o f 00:00: daily. Medical Branch SERTraline 0 Yes [id number] 25mg Take 1 U nivers 25 mg 9-30 tablet by ity of tablet 00:00: mouth [place] 00 every Medical morning. Branch mometasone 2019-0 Yes [id number] Apply to Univers 0.1 % cream 9-30 area(s) ity o f 00:00: daily. Medical Branch SERTraline 0 Yes [id number] 25mg Take 1 U nivers 25 mg 9-30 tablet by ity of tablet 00:00: mouth [place] 00 every Medical morning. Branch mometasone 2018-0 Yes [id number] Apply to Univers 0.1 % cream 9-30 area(s) ity o f 00:00: daily. [place] 00 Medical Branch SERTraline Yes [id number] 25mg Take 1 U nivers 25 mg 9-30 tablet by ity of tablet 00:00: mouth every Medical morning. [place] mometasone Yes [id number] Apply to Univers 0.1 % cream 9-30 area(s) ity o f 00:00: daily. [address] SERTraline Yes [id number] 25mg Take 1 U nivers 25 mg 9-30 tablet by ity of tablet 00:00: mouth 00 every Medical morning. [place] mometasone Yes [id number] Apply to Univers 0.1 % cream 9-30 area(s) ity o f 00:00: daily. [address] SERTraline Yes [id number] 25mg Take 1 U nivers 25 mg 9-30 tablet by ity of tablet 00:00: mouth every Medical morning. [place] mometasone Yes [id number] Apply to Univers 0.1 % cream 9-30 area(s) ity o f 00:00: daily. [address] SERTraline Yes [id number] 25mg Take 1 U nivers 25 mg 9-30 tablet by ity of tablet 00:00: mouth every Medical morning. [place] mometasone Yes [id number] Apply to Univers 0.1 % cream 9-30 area(s) ity o f 00:00: daily. [address] cefTRIAXone 2019- No [id number] 1000mg Univers (ROCEPHIN) 03-15 ity of injection 15:15: 14:30 [place] 1,000 mg 00 :00 [facility] cefTRIAXone 2019- No [id number] 1000mg 1,000 mg, Univers (ROCEPHIN) 03-15 Intramuscu it y of injection 15:15: 14:30 lar, ONCE, [place] 1,000 mg 00 :00 1 dose, Medical [facility] 03/15/19 Branch at 1015, MOY
Re ason for Anti-Infec tive: Documented Infection< br>Documen navid Infection Site: Respirator y
Durat ion of Therapy: 7 days cefTRIAXone 2019- No [id number] 1000mg Univers (ROCEPHIN) 03-15 ity of injection 15:15: 14:30 [place] 1,000 mg 00 :00 Medical Branch cefTRIAXone 2019- No [id number] 1000mg 1,000 mg, Univers (ROCEPHIN) 03-15 Intramuscu it y of injection 15:15: 14:30 lar, ONCE, [place] 1,000 mg 00 :00 1 dose, Medical 03/15/19 Branch at 1015, MOY
Re ason for Anti-Infec tive: Documented Infection< br>Documen navid Infection Site: Respirator y
Durat ion of Therapy: 7 days amoxicillin 2019- No [id number] 500mg Take 1 Univers 500 mg 02-01 capsule by ity of capsule 00:00: 04:59 mouth 2 [place] 00 :00 (two) Medical times Branch daily for 10 days. amoxicillin 2019- No [id number] 500mg Take 1 Univers 500 mg 02-01 capsule by ity of capsule 00:00: 04:59 mouth 2 [place] 00 :00 (two) Medical times Branch daily for 10 days. benzonatate Yes [id number] 100mg Take 1 Univers (TESSALON 5-07 capsule by ity of PERLClavister) 100 00:00: mouth 3 Huseyin as mg capsule 00 (three) Medica l times Branch daily. benzonatate 2019- No [id number] 100mg Take 1 Univers (TESSALON 5-07 -29 capsule by ity of TRACY) 100 00:00: 00:00 mouth 3 [place] mg capsule 00 :00 (three) Medica l times Branch daily. No known No Univers medications ity of [facility] Immunizations Ordered Immunization Filled Immunization Date Status Commen ts Source Name Name Meningococcal 2016-12-03 Completed University of Polysaccharide 00:00:00 [place] Medi sheryl (groups A, C, Y and Branc h W-135) conjugate vaccine (MCV4P) Meningococcal 2016-12-03 Completed University of Polysaccharide 00:00:00 [place] Medi sheryl (groups A, C, Y and Branc h W-135) conjugate vaccine (MCV4P) Meningococcal 2016-12-03 Completed University of Polysaccharide 00:00:00 [place] Medi sheryl (groups A, C, Y and [...] Completed University of Polysaccharide 00:00:00 [place] Medi sherly (groups A, C, Y and Branc h [...] (MCV4P) HPV 2012-06-02 Completed University of 00:00:00 [facility] Influenza Virus 2012-06-02 Completed Universit y of Vaccine - Whole 00:00:00 [facility] Branch HPV 2012-06-02 Completed University of 00:00:00 [facility] Influenza Virus 2012-06-02 Completed Universit y of Vaccine - Whole 00:00:00 [facility] HPV 2012-06-02 Completed University of 00:00:00 [facility] Influenza Virus 2012-06-02 Completed Universit y of Vaccine - Whole 00:00:00 [facility] HPV 2012-06-02 Completed University of 00:00:00 [facility] Influenza Virus 2012-06-02 Completed Universit y of Vaccine - Whole 00:00:00 [facility] HPV 2012-06-02 Completed University of 00:00:00 [facility] Influenza Virus 2012-06-02 Completed Universit y of Vaccine - Whole 00:00:00 [facility] HPV 2012-06-02 Completed University of 00:00:00 [facility] Influenza Virus 2012-06-02 Completed Universit y of Vaccine - Whole 00:00:00 [facility] HPV 2012-06-02 Completed University of 00:00:00 [facility] Influenza Virus 2012-06-02 Completed Universit y of Vaccine - Whole 00:00:00 [facility] HPV 2012-06-02 Completed University of 00:00:00 [facility] Influenza Virus 2012-06-02 Completed Universit y of Vaccine - Whole 00:00:00 [facility] HPV 2012-06-02 Completed University of 00:00:00 [facility] Influenza Virus 2012-06-02 Completed Universit y of Vaccine - Whole 00:00:00 [facility] HPV 2012-06-02 Completed University of 00:00:00 [facility] Influenza Virus 2012-06-02 Completed Universit y of Vaccine - Whole 00:00:00 [facility] HPV 2012-06-02 Completed University of 00:00:00 [facility] Influenza Virus 2012-06-02 Completed Universit y of Vaccine - Whole 00:00:00 [facility] HPV 2012-06-02 Completed University of 00:00:00 [facility] Influenza Virus 2012-06-02 Completed Universit y of Vaccine - Whole 00:00:00 [facility] HPV 2012-06-02 Completed University of 00:00:00 [facility] Influenza Virus 2012-06-02 Completed Universit y of Vaccine - Whole 00:00:00 [facility] HPV 2012-01-27 Completed University of 00:00:00 [facility] HPV 2012-01-27 Completed University of 00:00:00 [place] [facility] HPV 2012-01-27 Completed University of 00:00:00 [place] [facility] HPV 2012-01-27 Completed University of 00:00:00 [place] [facility] HPV 2012-01-27 Completed University of 00:00:00 [place] [facility] HPV 2012-01-27 Completed University of 00:00:00 [place] [facility] HPV 2012-01-27 Completed University of 00:00:00 [place] [facility] HPV 2012-01-27 Completed University of 00:00:00 [place] [facility] HPV 2012-01-27 Completed University of 00:00:00 [place] [facility] HPV 2012-01-27 Completed University of 00:00:00 [place] [facility] HPV 2012-01-27 Completed University of 00:00:00 [facility] Branch HPV 2012-01-27 Completed University of 00:00:00 [facility] HPV 2012-01-27 Completed University of 00:00:00 [facility] Vital Signs Vital Name Observation Time Observation Value Comments Source Systolic blood 2022-05-26 21:27:00 131 mm[Hg] Univer sity of pressure [facility] Diastolic blood 2022-05-26 21:27:00 85 mm[Hg] Unive rsity of [facility] Heart rate 2022-05-26 21:27:00 78 /min [facility] Body temperature 2022-05-26 21:27:00 37.11 Yuridia [facility] Respiratory rate 2022-05-26 21:27:00 18 /min [facility] Body height 2022-05-26 21:27:00 165.1 cm [facility] Body weight 2022-05-26 21:27:00 65.182 kg [facility] BMI 2022-05-26 21:27:00 23.91 kg/m2 [facility] Oxygen saturation in 2022-05-26 21:27:00 100 /min [facility] Arterial blood by [facility] Pulse oximetry Branch Systolic blood 2020-12-18 16:34:00 115 mm[Hg] Univer sity of pressure [facility] Diastolic blood 2020-12-18 16:34:00 68 mm[Hg] Unive rsity of [facility] Heart rate 2020-12-18 16:34:00 93 /min Universi ty of [place] [facility] Body temperature 2020-12-18 16:34:00 36.94 Yuridia Univ ersity of [place] [facility] Respiratory rate 2020-12-18 16:34:00 12 /min Univ ersity of [place] [facility] Body height 2020-12-18 16:34:00 165.1 cm Universi ty of [place] [facility] Body weight 2020-12-18 16:34:00 68.04 kg Universi ty of [place] [facility] BMI 2020-12-18 16:34:00 24.96 kg/m2 Universi ty of [place] [facility] Oxygen saturation in 2020-12-18 16:34:00 97 /min University of Arterial blood by [facility] Pulse oximetry Branch Systolic blood 2020-11-12 02:17:00 118 mm[Hg] Univer sity of pressure [place] [facility] Diastolic blood 2020-11-12 02:17:00 76 mm[Hg] Unive rsity of pressure [place] [facility] Heart rate 2020-11-12 02:17:00 87 /min Universi ty of [place] [facility] Body temperature 2020-11-12 02:17:00 37.11 Yuridia Univ ersity of [place] [facility] Respiratory rate 2020-11-12 02:17:00 20 /min Univ ersity of [place] [facility] Body height 2020-11-12 02:17:00 165.1 cm Universi ty of [place] [facility] Body weight 2020-11-12 02:17:00 60.782 kg Universi ty of [place] [facility] BMI 2020-11-12 02:17:00 22.30 kg/m2 Universi ty of [place] [facility] Oxygen saturation in 2020-11-12 02:17:00 94 /min University of Arterial blood by [facility] Pulse oximetry Branch Systolic blood 2019-12-13 19:51:00 122 mm[Hg] Univer sity of pressure [place] [facility] Diastolic blood 2019-12-13 19:51:00 82 mm[Hg] Unive rsity of pressure [place] [facility] Heart rate 2019-12-13 19:51:00 88 /min Universi ty of [place] [facility] Body temperature 2019-12-13 19:51:00 37.06 Yuridia Univ ersity of [place] [facility] Respiratory rate 2019-12-13 19:51:00 20 /min Univ ersity of [place] [facility] [place] Body weight 2019-12-13 19:51:00 57.607 kg Universi ty of [facility] Oxygen saturation in 2019-12-13 19:51:00 100 /min University of Arterial blood by [facility] Pulse oximetry Branch Systolic blood 2019-03-15 13:56:00 102 mm[Hg] Univer sity of pressure [place] [facility] [place] Diastolic blood 2019-03-15 13:56:00 69 mm[Hg] Unive rsity of pressure [place] [facility] Heart rate 2019-03-15 13:56:00 81 /min Universi ty of [place] [facility] [place] Body temperature 2019-03-15 13:56:00 37 Yuridia Univ ersity of [place] [facility] [place] Body weight 2019-03-15 13:56:00 55.792 kg Universi ty of [place] [facility] [place] Oxygen saturation in 2019-03-15 13:56:00 98 /min University of Arterial blood by [facility] Pulse oximetry Branch Systolic blood 2019-02-01 14:06:00 103 mm[Hg] Univer sity of pressure [place] [facility] Diastolic blood 2019-02-01 14:06:00 68 mm[Hg] Unive rsity of pressure [facility] Heart rate 2019-02-01 14:06:00 94 /min Universi ty of [place] [facility] [place] [place] Body temperature 2019-02-01 14:06:00 39 Yuridia [facility] [place] [facility] [place] Body weight 2019-02-01 14:06:00 59.421 kg [facility] [place] [facility] [place] Oxygen saturation in 2019-02-01 14:06:00 99 /min [facility] Arterial blood by [facility] Pulse oximetry Branch Procedures Procedure Date / Time Performing Clinician Source Performed [id number] 2021-04-07 00:00:00 CHADD [facility] [id number] 2021-04-07 00:00:00 CHADD [facility] ASSIGNMENT OF BENEFITS 2020-12-18 16:25:40 [facility] CONSENT/REFUSAL FOR 2020-11-12 02:06:25 Doctor Unassigned, Unive [facility] DIAGNOSIS AND TREATMENT [facility] XR LUMBAR SPINE 3 VW 2019-12-13 21:17:16 Negrita Keene [facility] [place] XR SPINE THORACIC 2 2019-12-13 21:17:16 Negrita Keene [facility] XR CERVICAL SPINE 3 2019-12-13 21:17:16 Negrita Keene [facility] POCT TEST 2019-12-13 20:35:00 Negrita Keene [facility] NOTICE OF PRIVACY 2019-12-13 20:10:25 Doctor Unassigned, [facility] CONSENT/REFUSAL FOR 2019-12-13 20:10:01 [facility] DIAGNOSIS AND TREATMENT [facility] [place] NOTICE OF PRIVACY 2019-12-13 19:26:25 Doctor Unassvan, [facility] CONSENT/REFUSAL FOR 2019-12-13 19:26:06 Doctor Unamonique [facility] DIAGNOSIS AND TREATMENT [facility] [place] ASSIGNMENT OF BENEFITS 2019-03-15 13:40:42 [facility] POCT RAPID STREP SCREEN 2019-03-15 00:00:00 Minal Echevarria [facility] FOR GROUP A Medical Branch NO SHOW OR MISSED 2019-02-01 13:58:16 Doctor Unamonique, [facility] APPOINTMENT POLICY [facility] ACKNOWLEDGEMENT POCT RAPID STREP SCREEN 2019-02-01 00:00:00 Tiffany Irwin [facility] FOR GROUP A Medical Branch Encounters Start End Encounter Admission Attending Care Care Encounter Source Date/Time Date/Time Type Type Clinicians Facility Department ID 2021-05-06 Emergency [facility] [id number] Univers 17:57:14 ity [facility] 2021-05-03 Emergency [facility] [id number] Univers 23:52:22 [facility] 2021-04-14 [id number] 06:00:00 Florencia 80 [facility] 2022-05-26 2022-05-26 Urgent Luis E Gutiérrez [facility] [id number] Univers 15:20:00 15:40:00 Care [facility]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
--- NOTE | 2022-07-31 10:10 | EDPHYS ---
Physician Documentation [facility] Name: Kiki Ellsworth Age: 21 yrs Sex: Female : 2000 Arrival Date: 07/31/2022 Time: 09:48 Bed 10 Private MD: ED Physician Aldo Nevarez HPI: 07/31 09:57 This 21 yrs old Female presents to ER via Ambulatory with complaints of Wound jmm Recheck. 09:57 Patient presents to ED for recheck of: abscess. This is a 21 year old female with no jmm chronic medical conditions that presents to the ED with s/p incision and drainage. Unable to follow up with surgery. Denies fever. States feeling better since incision and drainage. EDITORIAL SPECIALIST: 10:27 LMP N/A - control method Historical: - Allergies: 10:27 No Known Allergies; - Home Meds: 10:27 None [Active]; jl7 - PMHx: 10:27 None; - PSHx: 10:27 section; Cholecystectomy; Tonsillectomy; - Immunization history:: Adult Immunizations unknown. - Social history:: Smoking status: unknown. ROS: 09:57 Constitutional: Negative for fever, chills, and weight loss, Cardiovascular: Negative jmm for chest pain, palpitations, and edema, Respiratory: Negative for shortness of breath, cough, wheezing, and pleuritic chest pain. 09:57 All other systems are negative. Exam: 09:57 Constitutional: This is a well developed, well nourished patient who is awake, alert, jmm and in no acute distress. Head/Face: atraumatic. Eyes: EOMI, no conjunctival erythema appreciated ENT: Moist Mucus Membranes Neck: Trachea midline, Supple Chest/axilla: Normal chest wall appearance and motion. Cardiovascular: Regular rate and rhythm. No edema appreciated Respiratory: Normal respirations, no respiratory distress appreciated Abdomen/GI: Non distended Back: Normal ROM 09:57 Skin: packing in place, no surrounding induration and erythema, non tender to palpation. 09:57 Neuro: Orientation: is normal, Mentation: is normal, Memory: is normal. 09:57 Psych: Behavior/mood is pleasant, cooperative. Vital Signs: 09:56 BP 117 / 67; Pulse 81; Resp 16; Temp 98.2; Pulse Ox 100% on R/A; iw MDM: 09:57 Patient medically screened. [facility] 10:07 Data reviewed: vital signs, nurses notes. Management of patient was discussed with the jmm following: Structurer: Dr. Aburto. Counseling: I had a detailed discussion with the patient and/or guardian regarding: the historical points, exam findings, and any diagnostic results supporting the discharge/admit diagnosis, the need for outpatient follow up, to return to the emergency department if symptoms worsen or persist or if there are any questions or concerns that arise at home. ED course: Packing removed. Patient tolerated the procedure well. . Administered Medications: No medications were administered Disposition: 11:53 Co-signature as Attending Physician, Aldo Nevarez MD I reviewed the patient's care rt provided by the Advanced Practice Provider and agree with the diagnosis and treatment plan. Disposition Summary: 07/31/22 10:10 Discharge Ordered Location: Home [facility] Condition: Stable [facility] Diagnosis - Encounter for change or removal of nonsurgical wound dressing [facility] Followup: [facility] - With: Private Physician - When: 2 - 3 days - Reason: Recheck today's complaints, Continuance of care, Re-evaluation by your physician Discharge Instructions: - Discharge Summary Sheet [facility] - How to Change Your Wound Dressing [facility] - Incision and Drainage, Care After [facility] Forms: - Medication Reconciliation Form [facility] - Thank You Letter [facility] - Work release form [facility] - Antibiotic Education jm - Prescription Opioid Use [facility] Signatures: Glenn Rahman PA PA jmm Leal, Jahala, JIMI RN jl7 Aldo Nevarez MD MD rt
--- NOTE | 2022-07-31 10:10 | ER ---
Nurse's Notes [facility] Name: Kiki Ellsworth Age: 21 yrs Sex: Female : 2000 Arrival Date: 07/31/2022 Time: 09:48 Bed 10 Private MD: Diagnosis: Encounter for change or removal of nonsurgical wound dressing Presentation: 07/31 09:56 Chief complaint: Patient states: needs packing removed from wound on her back. iw Coronavirus screen: At this time, the client does not indicate any symptoms associated with coronavirus-19. Ebola Screen: Patient negative for fever greater than or equal to 101.5 degrees Fahrenheit, and additional compatible Ebola Virus Disease symptoms Patient denies exposure to infectious person. Patient denies travel to an Ebola-affected area in the 21 days before illness onset. No symptoms or risks identified at this time. Initial Sepsis Screen: Does the patient meet any 2 criteria? No. Patient's initial sepsis screen is negative. Does the patient have a suspected source of infection? No. Patient's initial sepsis screen is negative. Risk Assessment: Do you want to hurt yourself or someone else? Patient reports no desire to harm self or others. Onset of symptoms was July 29, 2022. 09:56 Method Of Arrival: Ambulatory iw 09:56 Acuity: TEODORO 4 Triage Assessment: 10:27 General: Appears in no apparent distress. uncomfortable, Behavior is calm, cooperative, jl7 appropriate for age. Pain: Denies pain. BREAKER BOSS: 10:27 LMP N/A - control method jl7 Historical: - Allergies: 10:27 No Known Allergies; jl7 - Home Meds: 10:27 None [Active]; jl7 - PMHx: 10:27 None; jl7 - PSHx: 10:27 section; Cholecystectomy; Tonsillectomy; jl7 - Immunization history:: Adult Immunizations unknown. - Social history:: Smoking status: unknown. Vital Signs: 09:56 BP 117 / 67; Pulse 81; Resp 16; Temp 98.2; Pulse Ox 100% on R/A; iw ED Course: 09:48 Patient arrived in ED. am2 09:51 Glenn Rahman PA is PHCP. [facility] 09:51 Aldo Nevarez MD is Attending Physician. sandra 09:57 Triage completed. iw 10:27 Arm band placed on right wrist. jl7 10:28 No provider procedures requiring assistance completed. Patient did not have IV access jl7 during this emergency room visit. Administered Medications: No medications were administered Outcome: 10: Discharge ordered by . sandra 10:28 Discharged to home ambulatory. jl7 10:28 Condition: stable 10:28 Discharge instructions given to patient, Instructed on discharge instructions, follow up and referral plans. Demonstrated understanding of instructions, follow-up care. 10:28 Patient left the ED. jl7 Signatures: Glenn Rahman PA PA jmm Williams, Irene, RN RN iw Baltazar Kilgore RN RN jl7 Yandy Jain am2
[2022-07-31 10:38] VITALS: BP 117/67; TEMP 98.2; O2SAT 100
== END 2022-07-31 10:28 | disposition home or self-care (01) ==
LOC: ER 09:43
DX: Z48.00 Encounter for change or removal of nonsurgical wound dressing (principal)

== ENCOUNTER 2023-01-17 19:58 | Emergency (ER) | payer OTHER ==
--- OUTSIDE RECORDS SUMMARY | 2023-01-17 20:03 | XMS REPORT | Continuity of Care Document ---
:2000 Author Organization [facility] t Address [address] [place] [address] Care Team Providers Name Role Phone PCP, PATIENT DOES NOT HAVE A Primary Care Physician Unavaila Florencia Clifton Attending Clinician Unavailable Yandy Gutiérrez MD Attending Clinician Unknown, Attending Attending Clinician Unavailable YANDY GUTIÉRREZ Attending Clinician Unavailable Minal Haley Attending Clinician Provider, [facility] Attending Clinician Unavailable Doctor Unassigned, [place] Attending Clinician Unavailable Yoly Olsen Attending Clinician [...] Number Effective Date Expiration Date Babak lópez [facility] [id number] 2015 00:00:00 Problems Condition Condition Condition Status [...] ally from Medical request Branch for surgery [id number] Gastritis Gastritis Disease Active Overview: Univers without without 1-18 Added ity of bleeding, bleeding, 00:00: automatic [place] unspecifie unspecifie 00 ally from Medical d d request Branch chronicity chronicity for , , surgery unspecifie unspecifie [id number] d d gastritis gastritis type type Gastritis, [...] [facility] [place] NO KNOWN Drug Active Univers ALLERGIE Class ity of S [facility] Social History Social Habit Start Date Stop Date Quantity Comments Source ASSERTION 2020-07-13 University 00:00:00 [facility] Exposure to 2022-05-16 2022-05-26 Not sure [facility]-CoV-2 00:00:00 15:27:00 [facility] (event) [place] Tobacco use and 2022-05-26 2022-05-26 Smokeless tobacco Un iversity of exposure 00:00:00 00:00:00 non-user [facility] Alcohol intake 2022-05-26 2022-05-26 Ex-drinker [facility] 00:00:00 00:00:00 (finding) [facility] Alcohol Comment 2017-02-01 2017-02-01 Socially Universit y of 00:00:00 00:00:00 [facility] Sex Assigned At [birth year] Universit y of 00:00:00 00:00:00 [facility] Smoking Status Start Date Stop Date Source Never smoked tobacco [facility] Medications Ordered Filled Start Stop Current Ordering Indication Dosage Frequency Signature Comments Components Source Medication Medication Date Date Medication? Clinician (SIG) Name Name neomycin-po 2021-07 Yes [id number] 4[drp] Place 4 Univers lymyxin-hyd 1-20 Drops in ity of rocortisone 00:00: right ear [place] otic 00 4 (four) Medical solution times [place] daily. loratadine 2020- No [id number] 10mg Take 1 Univers (CLARITIN) 6-14 07-15 tablet by ity of 10 mg 00:00: 04:59 mouth [place] tablet 00 :00 daily for Medical 30 days. Branch loratadine 2020- No [id number] 10mg Take 1 Univers (CLARITIN) 6-14 07-15 tablet by ity of 10 mg 00:00: 04:59 mouth [place] tablet 00 :00 daily for Medical 30 days. Branch acetaminoph 2020- No 1000mg 1,000 mg, Univers en 09 05-09 Oral, ity of (TYLENOL) 04:15: 03:21 ONCE, [place] :[place] dose, Sat Medical 1,000 mg 11/11/20 at Branch 2315, Routine cyclobenzap 2020-0 Yes [id number] 10mg Take 1 Univers rine 10 mg 6-08 tablet by ity of tablet 00:00: mouth 3 (three) Medical times Branch daily. ibuprofen 2020-0 Yes [id number] 600mg Take 1 Univers 600 mg 6-08 tablet by ity of tablet 00:00: mouth [place] 00 every 6 Medical (six) Branch hours as needed for Pain (scale 4-6). cyclobenzap 2020-0 Yes [id number] 10mg Take 1 Univers rine 10 mg 6-08 tablet by ity of tablet 00:00: mouth 3 00 (three) Medical times Branch daily. ibuprofen 2020-0 Yes [id number] 600mg Take 1 Univers 600 mg 6-08 tablet by ity of tablet 00:00: mouth [place] 00 every 6 Medical (six) Branch hours as needed for Pain (scale 4-6). cyclobenzap 2020-0 Yes [id number] 10mg Take 1 Univers rine 10 mg 6-08 tablet by ity of tablet 00:00: mouth (three) Medical times Branch daily. ibuprofen 2020-0 Yes [id number] 600mg Take 1 Univers 600 mg 6-08 tablet by ity of tablet 00:00: mouth [place] 00 every 6 Medical (six) Branch hours as needed for Pain (scale 4-6). cyclobenzap 2020-0 Yes [id number] 10mg Take 1 Univers rine 10 mg 6-08 tablet by ity of tablet 00:00: mouth (three) Medical times Branch daily. ibuprofen 2020-0 Yes [id number] 600mg Take 1 Univers 600 mg 6-08 tablet by ity of tablet 00:00: mouth [place] 00 every 6 Medical (six) Branch hours as needed for Pain (scale 4-6). cyclobenzap 2020-0 Yes [id number] 10mg Take 1 Univers rine 10 mg 6-08 tablet by ity of tablet 00:00: mouth 3 (three) Medical times Branch daily. ibuprofen 2020-0 Yes [id number] 600mg Take 1 Univers 600 mg 6-08 tablet by ity of tablet 00:00: mouth [place] 00 every 6 Medical (six) Branch hours as needed for Pain (scale 4-6). cyclobenzap 2020-0 Yes [id number] 10mg Take 1 Univers rine 10 mg 6-08 tablet by ity of tablet 00:00: mouth 3 [place] 00 (three) Medical times Branch daily. ibuprofen 2020-0 Yes [id number] 600mg Take 1 Univers 600 mg 6-08 tablet by ity of tablet 00:00: mouth [place] 00 every 6 Medical (six) Branch hours as needed for Pain (scale 4-6). cyclobenzap 2020-0 Yes [id number] 10mg Take 1 Univers rine 10 mg 6-08 tablet by ity of tablet 00:00: mouth 3 [place] 00 (three) Medical times Branch daily. ibuprofen 2020-0 Yes [id number] 600mg Take 1 Univers 600 mg 6-08 tablet by ity of tablet 00:00: mouth [place] 00 every 6 Medical (six) Branch hours as needed for Pain (scale 4-6). ibuprofen 2020-0 2020- No [id number] 600mg Take 1 Univers 600 mg 6-08 06-08 tablet by ity of tablet 00:00: 00:00 mouth [place] 00 :00 every 6 Medical (six) Branch hours as needed for Pain (scale 4-6). ibuprofen 2020-0 2020- No [id number] 600mg Take 1 Univers 600 mg 6-08 06-08 tablet by ity of tablet 00:00: 00:00 mouth [place] 00 :00 every 6 Medical (six) Branch hours as needed for Pain (scale 4-6). traMADol 2018-07 Yes [id number] 50mg Take 1 Uni vers (ULTRAM) 50 0-22 tablet by ity of mg tablet 00:00: mouth [place] 00 every 6 Medical (six) Branch hours as needed for Pain (scale 7-10). traMADol 2018-07 Yes [id number] 50mg Take 1 Uni vers (ULTRAM) 50 0-22 tablet by ity of mg tablet 00:00: mouth [place] 00 every 6 Medical (six) Branch hours as needed for Pain (scale 7-10). traMADol 2018-07 Yes [id number] 50mg Take 1 Uni vers (ULTRAM) 50 0-22 tablet by ity of mg tablet 00:00: mouth [place] 00 every 6 Medical (six) Branch hours as needed for Pain (scale 7-10). traMADol 2018-07 Yes [id number] 50mg Take 1 Uni vers (ULTRAM) 50 0-22 tablet by ity of mg tablet 00:00: mouth [place] 00 every 6 Medical (six) Branch hours as needed for Pain (scale 7-10). traMADol 2018-07 Yes [id number] 50mg Take 1 Uni vers (ULTRAM) 50 0-22 tablet by ity of mg tablet 00:00: mouth [place] 00 every 6 Medical (six) Branch hours as needed for Pain (scale 7-10). traMADol 2018-07 Yes [id number] 50mg Take 1 Uni vers (ULTRAM) 50 0-22 tablet by ity of mg tablet 00:00: mouth [place] 00 every 6 Medical (six) Branch hours as needed for Pain (scale 7-10). traMADol 2018-07 Yes [id number] 50mg Take 1 Uni vers (ULTRAM) 50 0-22 tablet by ity of mg tablet 00:00: mouth [place] 00 every 6 Medical (six) Branch hours as needed for Pain (scale 7-10). traMADol 2018-07 Yes [id number] 50mg Take 1 Uni vers (ULTRAM) 50 0-22 tablet by ity of mg tablet 00:00: mouth [place] 00 every 6 Medical (six) Branch hours as needed for Pain (scale 7-10). ondansetron 2018-07 Yes [id number] 4mg Take 1 Univers (ZOFRAN 0-08 tablet by ity of ODT) 4 mg 00:00: mouth [place] disintegrat 00 every 8 Medic al ing tablet (eight) Branch hours as needed for Nausea and Vomiting (N/V). ibuprofen 2018-07 Yes [id number] 600mg Take 1 U nivers 600 mg 0-08 tablet by ity of tablet 00:00: mouth [place] 00 every 8 Medical (eight) Branch hours as needed for Pain (scale 4-6). ondansetron 2018-07 Yes [id number] 4mg Take 1 Univers (ZOFRAN 0-08 tablet by ity of ODT) 4 mg 00:00: mouth [place] disintegrat 00 every 8 Medic al ing tablet (eight) Branch hours as needed for Nausea and Vomiting (N/V). ibuprofen 2018-07 Yes [id number] 600mg Take 1 U nivers 600 mg 0-08 tablet by ity of tablet 00:00: mouth [place] 00 every 8 Medical (eight) Branch hours as needed for Pain (scale 4-6). ondansetron 2018-07 Yes [id number] 4mg Take 1 Univers (ZOFRAN 0-08 tablet by ity of ODT) 4 mg 00:00: mouth [place] disintegrat 00 every 8 Medic al ing tablet (eight) Branch hours as needed for Nausea and Vomiting (N/V). ibuprofen 2018-07 Yes [id number] 600mg Take 1 U nivers 600 mg 0-08 tablet by ity of tablet 00:00: mouth [place] 00 every 8 Medical (eight) Branch hours as needed for Pain (scale 4-6). ondansetron 2018-07 Yes [id number] 4mg Take 1 Univers (ZOFRAN 0-08 tablet by ity of ODT) 4 mg 00:00: mouth [place] disintegrat 00 every 8 Medic al ing tablet (eight) Branch hours as needed for Nausea and Vomiting (N/V). ibuprofen 2018-07 Yes [id number] 600mg Take 1 U nivers 600 mg 0-08 tablet by ity of tablet 00:00: mouth [place] 00 every 8 Medical (eight) Branch hours as needed for Pain (scale 4-6). ondansetron 2018-07 Yes [id number] 4mg Take 1 Univers (ZOFRAN 0-08 tablet by ity of ODT) 4 mg 00:00: mouth [place] disintegrat 00 every 8 Medic al ing tablet (eight) Branch hours as needed for Nausea and Vomiting (N/V). ibuprofen 2018-07 Yes [id number] 600mg Take 1 U nivers 600 mg 0-08 tablet by ity of tablet 00:00: mouth [place] 00 every 8 Medical (eight) Branch hours as needed for Pain (scale 4-6). ondansetron 2018-07 Yes [id number] 4mg Take 1 Univers (ZOFRAN 0-08 tablet by ity of ODT) 4 mg 00:00: mouth [place] disintegrat 00 every 8 Medic al ing tablet (eight) Branch hours as needed for Nausea and Vomiting (N/V). ibuprofen 2018-07 Yes [id number] 600mg Take 1 U nivers 600 mg 0-08 tablet by ity of tablet 00:00: mouth [place] 00 every 8 Medical (eight) Branch hours as needed for Pain (scale 4-6). ondansetron 2018-07 Yes [id number] 4mg Take 1 Univers (ZOFRAN 0-08 tablet by ity of ODT) 4 mg 00:00: mouth [place] disintegrat 00 every 8 Medic al ing tablet (eight) Branch hours as needed for Nausea and Vomiting (N/V). ibuprofen 2018-07 Yes [id number] 600mg Take 1 U nivers 600 mg 0-08 tablet by ity of tablet 00:00: mouth [place] 00 every 8 Medical (eight) Branch hours as needed for Pain (scale 4-6). ondansetron 2018-07 Yes [id number] 4mg Take 1 Univers (ZOFRAN 0-08 tablet by ity of ODT) 4 mg 00:00: mouth [place] disintegrat 00 every 8 Medic al ing tablet (eight) Branch hours as needed for Nausea and Vomiting (N/V). ibuprofen 2018-07 Yes [id number] 600mg Take 1 U nivers 600 mg 0-08 tablet by ity of tablet 00:00: mouth [place] 00 every 8 Medical (eight) Branch hours as needed for Pain (scale 4-6). SERTraline Yes [id number] 25mg Take 1 U nivers 25 mg 9-30 tablet by ity of tablet 00:00: mouth [place] 00 every Medical morning. Branch mometasone 0 Yes [id number] Apply to Univers 0.1 % cream 9-30 area(s) ity o f 00:00: daily. [place] [facility] SERTraline 0 Yes [id number] 25mg Take 1 U nivers 25 mg 9-30 tablet by ity of tablet 00:00: mouth [place] 00 every Medical morning. Branch mometasone 2019-0 Yes [id number] Apply to Univers 0.1 % cream 9-30 area(s) ity o f 00:00: daily. [place] [facility] Branch SERTraline 2019-0 Yes [id number] 25mg Take 1 U nivers 25 mg 9-30 tablet by ity of tablet 00:00: mouth [place] 00 every Medical morning. Branch mometasone 2019-0 Yes [id number] Apply to Univers 0.1 % cream 9-30 area(s) ity o f 00:00: daily. [place] [facility] SERTraline 2018-0 Yes [id number] 25mg Take 1 U nivers 25 mg 9-30 tablet by ity of tablet 00:00: mouth [place] 00 every Medical morning. Branch mometasone 2019-0 Yes [id number] Apply to Univers 0.1 % cream 9-30 area(s) ity o f 00:00: daily. [address] SERTraline Yes [id number] 25mg Take 1 U nivers 25 mg 9-30 tablet by ity of tablet 00:00: mouth every Medical morning. [place] mometasone Yes [id number] Apply to Univers 0.1 % cream 9-30 area(s) ity o f 00:00: daily. [address] SERTraline Yes [id number] 25mg Take 1 U nivers 25 mg 9-30 tablet by ity of tablet 00:00: mouth 00 every Medical morning. [place] mometasone Yes [id number] Apply to Univers 0.1 % cream 9-30 area(s) ity o f 00:00: daily. [address] SERTraline Yes [id number] 25mg Take 1 U nivers 25 mg 9-30 tablet by ity of tablet 00:00: mouth every Medical morning. [place] mometasone Yes [id number] Apply to Univers 0.1 % cream 9-30 area(s) ity o f 00:00: daily. [address] SERTraline Yes [id number] 25mg Take 1 U nivers 25 mg 9-30 tablet by ity of tablet 00:00: mouth every Medical morning. [place] mometasone Yes [id number] Apply to Univers 0.1 % cream 9-30 area(s) ity o f 00:00: daily. [address] cefTRIAXone 2019- No [id number] 1000mg Univers (ROCEPHIN) 03-15 ity of injection 15:15: 14:30 [place] 1,000 mg 00 :00 [facility] cefTRIAXone 2019- No [id number] 1000mg 1,000 mg, Univers (ROCEPHIN) 03-15 Intramuscu it y of injection 15:15: 14:30 lar, ONCE, [place] 1,000 mg 00 :00 1 dose, Medical 03/15/19 Branch at 1015, MOY
Re ason for Anti-Infec tive: Documented Infection< br>Documen navid Infection Site: Respirator y
Durat ion of Therapy: 7 days cefTRIAXone 2019- No [id number] 1000mg Univers (ROCEPHIN) 03-15 ity of injection 15:15: 14:30 [place] 1,000 mg 00 :00 Medical Branch cefTRIAXone 2019- No [id number] 1000mg 1,000 mg, Univers (ROCEPHIN) 03-15 Intramuscu it y of injection 15:15: 14:30 lar, ONCE, [place] 1,000 mg 00 :00 1 dose, Medical 03/15/19 Branch at 1015, MOY
Re ason for Anti-Infec tive: Documented Infection< br>Documen navid Infection Site: Respirator y
Durat ion of Therapy: 7 days amoxicillin 2019- No [id number] 500mg Take 1 Univers 500 mg 02-01 capsule by ity of capsule 00:00: 04:59 mouth 2 [place] 00 :00 (two) Medical times Branch daily for 10 days. amoxicillin 2019- No [id number] 500mg Take 1 Univers 500 mg 02-01 capsule by ity of capsule 00:00: 04:59 mouth 2 [place] 00 :00 (two) Medical times Branch daily for 10 days. benzonatate Yes [id number] 100mg Take 1 Univers (TESSALON 5-07 capsule by ity of TRACY) 100 00:00: mouth 3 Huseyin as mg capsule 00 (three) Medica l times Branch daily. benzonatate 2019- No [id number] 100mg Take 1 Univers (TESSALON 5-07 - capsule by itkathy TRACY) 100 00:00: 00:00 mouth 3 [place] mg capsule 00 :00 (three) Medica l times Branch daily. No known No Univers medications ity of [facility] Immunizations Ordered Immunization Filled Immunization Date Status Commen ts Source Name Name Meningococcal 2016-12-03 Completed University of Polysaccharide 00:00:00 [place] Medi sheryl (groups A, C, Y and Branc h W-135) conjugate vaccine (MCV4P) Meningococcal 2016-12-03 Completed University of Polysaccharide 00:00:00 [place] Medi sheryl (groups A, C, Y and [...] Meningococcal 2016-12-03 Completed University of Polysaccharide 00:00:00 [place] Medi sheryl (groups A, C, Y and Branc h W-135) conjugate vaccine (MCV4P) HPV 2012-06-02 Completed University of 00:00:00 [facility] Influenza Virus 2012-06-02 Completed Universit y of Vaccine - Whole 00:00:00 [facility] HPV 2012-06-02 Completed University of 00:00:00 [facility] Influenza Virus 2012-06-02 Completed Universit y of Vaccine - Whole 00:00:00 [facility] HPV 2012-06-02 Completed University of 00:00:00 [facility] Influenza Virus 2012-06-02 Completed Universit y of Vaccine - Whole 00:00:00 [facility] HPV 2012-06-02 Completed University of 00:00:00 [facility] Influenza Virus 2012-06-02 Completed Universit y of Vaccine - Whole 00:00:00 [facility] HPV 2012-06-02 Completed University of 00:00:00 [facility] Influenza Virus 2012-06-02 Completed Universit y of Vaccine - Whole 00:00:00 [facility] HPV 2012-06-02 Completed University of 00:00:00 [facility] Influenza Virus 2012-06-02 Completed Universit y of Vaccine - Whole 00:00:00 [facility] HPV 2012-06-02 Completed University of 00:00:00 [facility] Influenza Virus 2012-06-02 Completed Universit y of Vaccine - Whole 00:00:00 [facility] HPV 2012-06-02 Completed University of 00:00:00 [facility] Influenza Virus 2012-06-02 Completed Universit y of Vaccine - Whole 00:00:00 [facility] HPV 2012-06-02 Completed University of 00:00:00 [facility] Influenza Virus 2012-06-02 Completed Universit y of Vaccine - Whole 00:00:00 [facility] HPV 2012-06-02 Completed University of 00:00:00 [facility] Influenza Virus 2012-06-02 Completed Universit y of Vaccine - Whole 00:00:00 [facility] HPV 2012-06-02 Completed University of 00:00:00 [facility] Influenza Virus 2012-06-02 Completed Universit y of Vaccine - Whole 00:00:00 [facility] HPV 2012-06-02 Completed University of 00:00:00 [facility] Influenza Virus 2012-06-02 Completed Universit y of Vaccine - Whole 00:00:00 [facility] HPV 2012-06-02 Completed University of 00:00:00 [facility] Influenza Virus 2012-06-02 Completed Universit y of Vaccine - Whole 00:00:00 [facility] ical Branch HPV 2012-01-27 Completed University of 00:00:00 [facility] Branch HPV 2012-01-27 Completed University of 00:00:00 [facility] Branch HPV 2012-01-27 Completed University of 00:00:00 [facility] Branch HPV 2012-01-27 Completed University of 00:00:00 [facility] Branch HPV 2012-01-27 Completed University of 00:00:00 [facility] Branch HPV 2012-01-27 Completed University of 00:00:00 [facility] Branch HPV 2012-01-27 Completed University of 00:00:00 [facility] Branch HPV 2012-01-27 Completed University of 00:00:00 [facility] Branch HPV 2012-01-27 Completed University of 00:00:00 [facility] Branch HPV 2012-01-27 Completed University of 00:00:00 [facility] Branch HPV 2012-01-27 Completed University of 00:00:00 [facility] HPV 2012-01-27 Completed University of 00:00:00 [facility] HPV 2012-01-27 Completed University of 00:00:00 [facility] Vital Signs Vital Name Observation Time Observation Value Comments Source Systolic blood 2022-05-26 21:27:00 131 mm[Hg] Univer sity of pressure [facility] Diastolic blood 2022-05-26 21:27:00 85 mm[Hg] Unive rsity of pressure [facility] Heart rate 2022-05-26 21:27:00 78 /min [facility] Body temperature 2022-05-26 21:27:00 37.11 Yuridia [facility] 2022-05-26 21:27:00 18 /min [facility] Body height 2022-05-26 21:27:00 165.1 cm [facility] Body weight 2022-05-26 21:27:00 65.182 kg [facility] BMI 2022-05-26 21:27:00 23.91 kg/m2 [facility] Oxygen saturation in 2022-05-26 21:27:00 100 /min University of Arterial blood by [facility] Pulse oximetry Branch Systolic blood 2020-12-18 16:34:00 115 mm[Hg] Univer sity of pressure [place] [facility] Diastolic blood 2020-12-18 16:34:00 68 mm[Hg] Unive rsity of pressure [place] [facility] Heart rate 2020-12-18 16:34:00 93 /min Universi ty of [place] [facility] Body temperature 2020-12-18 16:34:00 36.94 Yuridia Univ ersity of [place] [facility] Respiratory rate 2020-12-18 16:34:00 12 /min Univ ersity of [place] [facility] Body height 2020-12-18 16:34:00 165.1 cm Universi ty of [place] [facility] Body weight 2020-12-18 16:34:00 68.04 kg Universi ty of [place] [facility] BMI 2020-12-18 16:34:00 24.96 kg/m2 Universi ty of [place] [facility] Oxygen saturation in 2020-12-18 16:34:00 97 /min University of Arterial blood by [facility] Pulse oximetry Branch Systolic blood 2020-11-12 02:17:00 118 mm[Hg] Univer sity of pressure [place] [facility] Diastolic blood 2020-11-12 02:17:00 76 mm[Hg] Unive rsity of pressure [place] [facility] Heart rate 2020-11-12 02:17:00 87 /min Universi ty of [place] [facility] Body temperature 2020-11-12 02:17:00 37.11 Yuridia Univ ersity of [place] [facility] Respiratory rate 2020-11-12 02:17:00 20 /min Univ ersity of [place] [facility] Body height 2020-11-12 02:17:00 165.1 cm Universi ty of [place] [facility] Body weight 2020-11-12 02:17:00 60.782 kg Universi ty of [place] [facility] BMI 2020-11-12 02:17:00 22.30 kg/m2 Universi ty of [place] [facility] Oxygen saturation in 2020-11-12 02:17:00 94 /min University of Arterial blood by [facility] sheryl Pulse oximetry Branch Systolic blood 2019-12-13 19:51:00 122 mm[Hg] Univer sity of pressure [place] [facility] Diastolic blood 2019-12-13 19:51:00 82 mm[Hg] Unive rsity of pressure [place] [facility] Heart rate 2019-12-13 19:51:00 88 /min Universi ty of [place] [facility] Body temperature 2019-12-13 19:51:00 37.06 Yuridia Univ ersity of [place] [facility] Respiratory rate 2019-12-13 19:51:00 20 /min Univ ersity of [place] [facility] Body weight 2019-12-13 19:51:00 57.607 kg Universi ty of [facility] Oxygen saturation in 2019-12-13 19:51:00 100 /min University of Arterial blood by [facility] Pulse oximetry Branch Systolic blood 2019-03-15 13:56:00 102 mm[Hg] Univer sity of pressure [place] [facility] Diastolic blood 2019-03-15 13:56:00 69 mm[Hg] Unive rsity of pressure [facility] Branch Heart rate 2019-03-15 13:56:00 81 /min Universi ty of [facility] Body temperature 2019-03-15 13:56:00 37 Yuridia Univ ersity of [place] [facility] [place] Body weight 2019-03-15 13:56:00 55.792 kg Universi ty of [facility] Oxygen saturation in 2019-03-15 13:56:00 98 /min University of Arterial blood by [facility] Pulse oximetry Branch Systolic blood 2019-02-01 14:06:00 103 mm[Hg] Univer sity of pressure [place] [facility] Diastolic blood 2019-02-01 14:06:00 68 mm[Hg] Unive rsity of pressure [facility] Heart rate 2019-02-01 14:06:00 94 /min Universi ty of [place] [facility] [place] Body temperature 2019-02-01 14:06:00 39 Yuridia Univ ersity of [facility] Body weight 2019-02-01 14:06:00 59.421 kg Universi ty of [facility] Oxygen saturation in 2019-02-01 14:06:00 99 /min University of Arterial blood by [facility] Pulse oximetry Branch Procedures Procedure Date / Time Performing Clinician Source Performed [id number] 2021-04-07 00:00:00 CHADD [facility] [place] [id number] 2021-04-07 00:00:00 CHADD [facility] [place] ASSIGNMENT OF BENEFITS 2020-12-18 16:25:40 Doctor Unassigned, Un [facility] [place] [facility] CONSENT/REFUSAL FOR 2020-11-12 02:06:25 Doctor Unassigned, Unive rsity of [place] DIAGNOSIS AND TREATMENT [place] [facility] XR LUMBAR SPINE 3 VW 2019-12-13 21:17:16 Negrita Keene [facility] Medical [place] XR SPINE THORACIC 2 VW 2019-12-13 21:17:16 Negrita Keene [facility] Medical [place] XR CERVICAL SPINE 3 VW 2019-12-13 21:17:16 Negrita Keene [facility] POCT TEST 2019-12-13 20:35:00 Negrita Keene [facility] NOTICE OF PRIVACY 2019-12-13 20:10:25 Doctor Darion [facility] PRACTICES [place] [facility] CONSENT/REFUSAL FOR 2019-12-13 20:10:01 Kell Carney [facility] [place] [facility] DIAGNOSIS AND TREATMENT [place] [facility] NOTICE OF PRIVACY 2019-12-13 19:26:25 Doctor Orlando [facility] PRACTICES [facility] CONSENT/REFUSAL FOR 2019-12-13 19:26:06 Doctor Kell Orlando [facility] DIAGNOSIS AND TREATMENT [facility] ASSIGNMENT OF BENEFITS 2019-03-15 13:40:42 Doctor [facility] POCT RAPID STREP SCREEN 2019-03-15 00:00:00 Minal Echevarria [facility] FOR GROUP A Medical Branch NO SHOW OR MISSED 2019-02-01 13:58:16 Doctor Darion [facility] APPOINTMENT POLICY [facility] ACKNOWLEDGEMENT POCT RAPID STREP SCREEN 2019-02-01 00:00:00 Tiffany Irwin [facility] FOR GROUP A Medical Branch Encounters Start End Encounter Admission Attending Care Care Encounter Source Date/Time Date/Time Type Type Clinicians Facility Department ID 2021-05-06 Emergency [facility] [id number] [facility] 17:57:14 [facility] 2021-05-03 Emergency [facility] [id number] Univers 23:52:22 [facility] 2021-04-14 Inpatient BHARATHI Gottlieb [facility] [id number] [facility] 06:00:00 [place] [address] [facility] 2022-05-26 2022-05-26 Urgent Yandy Gutiérrez [facility] 1.2.840.114 [id number] Univers 15:20:00 15:40:00 Care [facility] [id number] ity of [place] 4.2.7.2.686 Huseyin as KATHY?BLEA [id number] [address] OFFICE BUILDING 2022-05-26 2022-05-26 Outpatient [facility] [id number] Univers 15:20:00 15:33:51 YANDY ity [facility] 2021-04-06 2021-04-09 Inpatient CARMEN Gottlieb, [facility] CHUN [id number] [facility] 08:10:00 13:03:00 Florencia [facility] 2021-03-06 2021-03-06 Emergency KOFI Gottlieb, [facility] CHUN [id number] [facility] 18:21:00 20:50:00 Florencia 47 [facility] 2021-01-09 2021-01-09 [facility] 1.2.840.114 [id number] Univers 00:00:00 00:00:00 [facility] [id number] it y of [place] 4.2.7.2.686 Huseyin as Professio [phone] [address] One 2020-12-18 2020-12-18 Urgent Provider, [facility] 1.2.840.114 [id number] Univers 11:27:55 11:47:55 Care Minal Echevarria [id number] ity of [place] 4.2.7.2.686 Huseyin as Professio [phone] [facility] [address] [facility] One 2020-12-18 2020-12-18 Outpatient R [facility] [id number] Univers 11:20:00 11:20:00 ity of [facility] 2020-12-18 2020-12-18 Orders Doctor WOODS 1.2.840.114 [id number] Univers 00:00:00 00:00:00 Only Unassigned, XIMENA [id number] ity of [place] [facility] 4.2.7.2.686 Huseyin as [id number] [address] 2020-11-11 2020-11-11 Emergency [facility] 1.2.840.114 [id number] Univers 21:20:00 22:49:00 Yoly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
[2023-01-17] MEDS ORDERED: NA CHLORIDE 0.9% 1,000 ML ONE (22:04)
[2023-01-17] MEDS ORDERED: ONDANSETRON 4 MG/2 ML VIAL ONE (22:04)
[2023-01-17 22:15] LABS: Specific Gravity > 1.030 (1.005-1.030)
[2023-01-17 22:24] LABS: Absolute Lymphocytes (CBC) 0.6 K/uL (0.7-4.9); Hematocrit 43.5 % (36.0-45.0); Lymphocytes % 8.1 % (15.3-44.8); MCV 89.2 fL (80-100); MPV 9.6 fL (7.6-11.3); RBC Red Blood Cell Count 4.87 M/uL (3.86-4.86)
[2023-01-17 22:25] LABS: Specific Gravity > 1.030 (1.005-1.030); Urine Bacteria <20 /HPF (<20); Urine Bilirubin NEGATIVE (Negative); Urine Blood Negative (Negative); Urine Clarity Extremely Turbid (Clear); Urine Color Yellow (Yellow); Urine Glucose NEGATIVE (Negative); Urine Mucus 4+ /HPF (None Seen); Urine Protein 1+ (Negative); Urine RBC <5 /HPF (None Seen); Urine Urobilinogen 1+ (Normal)
[2023-01-17 22:33] LABS: Albumin 4.4 g/dL (3.4-5.0); Bilirubin Total 0.9 mg/dL (0.2-1.0); Magnesium 2.1 mg/dL (1.6-2.4); Potassium 3.8 mEq/L (3.5-5.1); Protein, Total 8.4 g/dL (6.4-8.2)
--- NOTE | 2023-01-17 23:22 | EDPHYS ---
Physician Documentation [facility] Name: Kiki Ellsworth Age: 22 yrs Sex: Female : 2000 Arrival Date: 01/17/2023 Time: 19:58 Bed 4 Private MD: ED Physician Nai Melcohr HPI: 01/17 23:18 This 22 yrs old Female presents to ER via Ambulatory with complaints of sd2 Nausea/Vomiting, General Weakness. 23:18 22 yo F presents with CC of n/v that started earlier today and has not been able to sd2 keep anything down today. Has had diarrhea x2 this evening as well. Denies fever or urinary symptoms. States there is a chance of . Tried taking Dramamine today with no relief. . 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 - Social history:: Smoking status: Patient denies any tobacco usage or history of. Patient/guardian denies using alcohol, street drugs. ROS: 23:18 Constitutional: Negative for fever, chills, and weight loss, Eyes: Negative for injury, sd2 pain, redness, and discharge, Cardiovascular: Negative for chest pain, palpitations, and edema, Respiratory: Negative for shortness of breath, cough, wheezing. Abdomen/GI: Positive for abdominal cramping, nausea, vomiting, diarrhea. : Negative for dysuria, urinary frequency, hesitancy, urgency and hematuria. MS/Extremity: Negative for injury and deformity, Skin: Negative for injury, rash, and discoloration, Neuro: Negative for headache, numbness and tingling. Exam: 23:18 Constitutional: This is a well developed, well nourished patient who is awake, alert, sd2 and in no acute distress. Head/Face: Normocephalic, atraumatic. Eyes: EOMI, normal conjunctiva bilaterally Chest/axilla: Normal chest wall appearance and motion. Nontender with no deformity. Cardiovascular: Regular rate and rhythm with a normal S1 and S2. No gallops, murmurs, or rubs. 2+ distal pulses. Respiratory: Lungs have equal breath sounds bilaterally, clear to auscultation and percussion. No rales, rhonchi or wheezes noted. No increased work of breathing, no retractions or nasal flaring. Abdomen/GI: Soft, non-tender, with normal bowel sounds. No guarding or rebound. No evidence of tenderness throughout. Skin: Warm, dry with normal turgor. Normal color with no rashes, no lesions, and no evidence of cellulitis. MS/ Extremity: Pulses equal, no cyanosis. Neurovascular intact. Full, normal range of motion. Ambulatory without difficulty. Psych: Awake, alert, with orientation to person, place and time. Behavior, mood, and affect are within normal limits. Vital Signs: 21:46 BP 110 / 74; Pulse 84; Resp 17 S; Temp 100.1(O); Pulse Ox 100% on R/A; Weight 65.32 kg lg3 (R); Height 5 ft. 5 in. ; 21:46 Body Mass Index 23.96 (65.32 kg, 165.1 cm) lg3 MDM: 21:51 Patient medically screened. sd2 23:18 Differential diagnosis: Gastritis, cholecystitis, pancreatitis, SBO, diverticulitis, sd2 kidney stone, appendicitis, UTI, dehydration, electrolyte abnormality among others. Data reviewed: vital signs, nurses notes, lab test result(s). I considered the following discharge prescriptions or medication management in the emergency department Medications were administered in the Emergency Department. See MAR. Test considered but Not performed: CT: Not indicated with benign abdominal exam and labs. Counseling: I had a detailed discussion with the patient and/or guardian regarding: the historical points, exam findings, and any diagnostic results supporting the discharge/admit diagnosis, lab results, the need for outpatient follow up, to return to the emergency department if symptoms worsen or persist or if there are any questions or concerns that arise at home. ED course: Labs reviewed with no significant abnormalities at this time. The patient is feeling improved and able to tolerate p.o. following the meds. Her abdominal exam is benign and her gallbladder has previously been removed. Patient was advised of continued supportive care at home for her symptoms as well as strict return precautions to return for CT scan or further imaging if her symptoms do worsen. She is comfortable with plan for discharge and outpatient follow-up and will be discharged home with oral Zofran and Bentyl. Also advised pepcid for home use as needed. . 01/17 21:51 Order name: CBC with Diff; Complete Time: 22:35 sd2 01/17 21:51 Order name: CMP; Complete Time: 22:35 01/17 21:51 Order name: Lipase; Complete Time: 22:35 01/17 21:51 Order name: Magnesium; Complete Time: 22:35 01/17 21:51 Order name: Urinalysis w/ reflexes; Complete Time: 22:35 01/17 21:51 Order name: Test, Urine; Complete Time: 22:35 01/17 22:36 Order name: PO challenge; Complete Time: 22:55 sd2 Administered Medications: 22:05 Drug: NS 0.9% IV 1000 ml Route: IV; Rate: 1 bolus; Site: right antecubital; mb9 23:05 Follow up: Response: No adverse reaction; IV Status: Completed infusion mb9 22:05 Drug: Ondansetron IVP 4 mg Route: IVP; Site: right antecubital; mb9 23:05 Follow up: Response: No adverse reaction mb9 22:47 Drug: Famotidine IVP 20 mg Route: IVP; Site: right antecubital; mb9 23:04 Follow up: Response: No adverse reaction mb9 Disposition Summary: 01/17/23 23:21 Discharge Ordered Location: Home sd2 Problem: new sd2 Symptoms: have improved sd2 Condition: Stable sd2 Diagnosis - Nausea with vomiting, unspecified sd2 - Abdominal pain, unspecified sd2 Followup: sd2 - With: Private Physician - When: 2 - 3 days - Reason: Recheck today's complaints, Continuance of care, Re-evaluation by your physician Discharge Instructions: - Discharge Summary Sheet sd2 - Abdominal Pain, Adult sd2 - Nausea and Vomiting, Adult sd2 Forms: - Medication Reconciliation Form sd2 - Thank You Letter sd2 - Antibiotic Education sd2 - Prescription Opioid Use sd2 - Patient Portal Instructions sd2 Prescriptions: - Zofran 4 mg Oral Tablet - take 1 tablet by ORAL route every 6 hours As needed; 15 tablet; Refills: 0, sd2 Product Selection Permitted - dicyclomine 20 mg Oral Tablet - take 1 tablet by ORAL route every 6 hours As needed Take as needed for sd2 abdominal cramping; 15 tablet; Refills: 0, Product Selection Permitted Signatures: Dispatcher [employer] Mago Real RN RN lg3 Nai Melchor MD MD sd2 Tiffanie Cedillo RN RN mb9
--- NOTE | 2023-01-17 23:22 | ER ---
Nurse's Notes [facility] Name: Kiki Ellsworth Age: 22 yrs Sex: Female : 2000 Arrival Date: 01/17/2023 Time: 19:58 Bed 4 Private MD: Diagnosis: Nausea with vomiting, unspecified;Abdominal pain, unspecified Presentation: 01/17 21:46 Chief complaint: Patient states: vomiting since this AM. cant keep nothing down and i lg3 feel weak with body aches. Coronavirus screen: Client denies travel out of the [place] in the last 14 days. At this time, the client does not indicate any symptoms associated with coronavirus-19. Ebola Screen: No symptoms or risks identified at this time. Initial Sepsis Screen: Does the patient meet any 2 criteria? No. Patient's initial sepsis screen is negative. Does the patient have a suspected source of infection? No. Patient's initial sepsis screen is negative. Risk Assessment: Do you want to hurt yourself or someone else? Patient reports no desire to harm self or others. Onset of symptoms was January 17, 2023. 21:46 Method Of Arrival: Ambulatory lg3 21:46 Acuity: TEODORO 3 lg3 Triage Assessment: 21:48 General: Appears in no apparent distress. uncomfortable, Behavior is calm, cooperative. lg3 Pain: Complains of pain in abdomen. EENT: No deficits noted. No signs and/or symptoms were reported regarding the EENT system. Neuro: No deficits noted. Merrill Agitation-Sedation Scale (RASS): 0 - Alert and Calm Level of Consciousness is awake, alert, obeys commands, Oriented to person, place, time, situation. Cardiovascular: No deficits noted. Denies chest pain, shortness of breath. Respiratory: No deficits noted. Airway is patent Respiratory effort is even, unlabored, Respiratory pattern is regular, symmetrical. GI: Abdomen is flat, non-distended, Reports lower abdominal pain, upper abdominal pain, cramping, intolerance of fluids, intolerance of food, nausea, vomiting. : No deficits noted. No signs and/or symptoms were reported regarding the genitourinary system. Derm: No deficits noted. No signs and/or symptoms reported regarding the dermatologic system. Skin is intact, is healthy with good turgor, Skin is dry, Skin is normal, Skin temperature is warm. Musculoskeletal: No deficits noted. Circulation, motion, and sensation intact. Range of motion: intact in all extremities, Reports generalized weakness. 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 - Social history:: Smoking status: Patient denies any tobacco usage or history of. Patient/guardian denies using alcohol, street drugs. Screenin:10 [facility] ED Fall Risk Assessment (Adult) History of falling in the last 3 months, mb9 including since admission No falls in past 3 months (0 pts) Confusion or Disorientation No (0 pts) Intoxicated or Sedated No (0 pts) Impaired Gait No (0 pts) Mobility Assist Device Used No (0 pt) Altered Elimination No (0 pt) Score/Fall Risk Level 0 - 2 = Low Risk Oriented to surroundings, Maintained a safe environment, Educated pt \T\ family on fall prevention, incl call for assistance when getting out of bed. Abuse screen: Denies threats or abuse. Nutritional screening: No deficits noted. Tuberculosis screening: No symptoms or risk factors identified. Assessment: 22:09 General: Appears uncomfortable, Behavior is calm, cooperative. Pain: Complains of pain mb9 in abdomen Pain does not radiate. Pain currently is 6 out of 10 on a pain scale. Quality of pain is described as throbbing, Pain began suddenly. Neuro: Merrill Agitation-Sedation Scale (RASS): 0 - Alert and Calm Level of Consciousness is awake, alert, obeys commands, Oriented to person, place, time, situation, Appropriate for age. Cardiovascular: Patient's skin is warm and dry. Respiratory: Airway is patent Respiratory effort is even, unlabored, Respiratory pattern is regular, symmetrical. GI: Abdomen is flat, non-distended, Bowel sounds present X 4 quads. Abd is soft X 4 quads Abdomen is tender to palpation in epigastric area Reports nausea, vomiting. : Urine is cloudy. Derm: Skin is pink, warm \T\ dry. Musculoskeletal: Range of motion: intact in all extremities. Vital Signs: 21:46 BP 110 / 74; Pulse 84; Resp 17 S; Temp 100.1(O); Pulse Ox 100% on R/A; Weight 65.32 kg lg3 (R); Height 5 ft. 5 in. ; 21:46 Body Mass Index 23.96 (65.32 kg, 165.1 cm) lg3 ED Course: 20:01 Patient arrived in ED. jj6 20:04 Nai Melchor MD is Attending Physician. sd2 21:48 Triage completed. lg3 21:48 Arm band placed on right wrist. lg3 21:51 Tiffanie Cedillo, JIMI is Primary Nurse. mb9 22:10 Placed in gown. Bed in low position. Call light in reach. Side rails up X 1. Client mb9 placed on continuous cardiac and pulse oximetry monitoring. NIBP monitoring applied. 22:10 Inserted saline lock: 20 gauge in right antecubital area, using aseptic technique. mb9 22:10 Magnesium Sent. mb9 22:10 Test, Urine Sent. mb9 22:10 Urinalysis w/ reflexes Sent. mb9 22:10 CMP Sent. mb9 22:10 Lipase Sent. mb9 22:10 CBC with Diff Sent. mb9 22:10 No provider procedures requiring assistance completed. mb9 01/18 00:04 IV discontinued, intact, bleeding controlled, No redness/swelling at site. Pressure mb9 dressing applied. Administered Medications: 01/17 22:05 Drug: NS 0.9% IV 1000 ml Route: IV; Rate: 1 bolus; Site: right antecubital; mb9 23:05 Follow up: Response: No adverse reaction; IV Status: Completed infusion mb9 22:05 Drug: Ondansetron IVP 4 mg Route: IVP; Site: right antecubital; mb9 23:05 Follow up: Response: No adverse reaction mb9 22:47 Drug: Famotidine IVP 20 mg Route: IVP; Site: right antecubital; mb9 23:04 Follow up: Response: No adverse reaction mb9 Medication: 22:11 VIS not applicable for this client. mb9 Outcome: 23:21 Discharge ordered by . sd2 01/18 00:04 Discharged to home ambulatory. mb9 Condition: stable Discharge instructions given to patient, Instructed on discharge instructions, follow up and referral plans. Demonstrated understanding of instructions, follow-up care, medications, Prescriptions given X 2. 00:04 Patient left the ED. mb9 Signatures: Mago Pierre, RN RN lg3 Kalee Marx6 Nai Melchor MD MD sd2 Tiffanie Cedillo RN RN mb9
== END 2023-01-18 00:04 | disposition home or self-care (01) ==
LOC: ER 19:58
DX: R11.2 Nausea with vomiting, unspecified (principal); R10.9 Unspecified abdominal pain
CPT/HCPCS: 96361; 85025; 81001; 36415; 83735; 81025; 83690; 80053; 96375; 96374; 99284; J2405; J7030